=== PATIENT | male | born 1970 | race Caucasian/White ===

== ENCOUNTER 2022-07-01 07:16 | Day surgery (SDC) | payer MEDICAID, SELFPAY ==
[2022-07-01] VITALS (11 sets, daily range): BP systolic 96–130; BP diastolic 56–86; PULSE 60–80; RESP 12–16; TEMP 35.9–37; O2SAT 95–100; BMI 32.4
[2022-07-01] MEDS: LACTATED RINGERS 1000 ML 1,000 ML 100 ML IV (07:05)
[2022-07-01] MEDS: SODIUM CHLORIDE 0.9 % (FLUSH) 10 ML SYRINGE IVF (07:50)
[2022-07-01] MEDS: CEFAZOLIN 2 GM INJ IVP (09:00)
[2022-07-01] MEDS: ROPIVACAINE 0.5% 30 ML 150 MG INJECTION (09:37)
--- NOTE | 2022-07-01 09:42 | PM.ORPRC ---
Procedure Note Date of procedure: 07/01/22 Procedure: PREOPERATIVE DIAGNOSIS: 1. Right knee medial meniscus tear POSTOPERATIVE DIAGNOSIS: 1. Right knee medial meniscus tear 2. 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 Right knee arthroscopic partial medial menisectomy 2. Right knee arthroscopic chondroplasty patellofemoral compartment SURGEON: Chris Sanabria M.D. SUBSTATION DESIGNER: Reinaldo Fuller PA-C. Of note, an automotive service assistant was critical for this case to aid in patient positioning, knee manipulation, instrument exchange, and closure. ANESTHESIA: Spinal EBL: 2ml TOURNIQUET: 20 minutes at 300 torr COMPLICATIONS: None evident INDICATIONS: The patient is a pleasant 51-year-old male who has experienced right knee pain particularly with any twisting or turning. Physical exam was concerning for medial meniscus tear, this was confirmed on MRI. Additionally, attempted nonoperative management has been tried, and failed. Thus, surgery was recommended. FINDINGS: Grade 3-4 chondromalacia medial compartment broadly throughout the weight-bearing portion of both surfaces. Complex tearing posterior horn to midbody medial meniscus. No bucket-handle tearing evident. Posterior root was intact. ACL and PCL were intact and robust lateral compartment showed grade 2 chondromalacia but an intact lateral meniscus with only minimal fraying central portion. Patellofemoral compartment showed grade 4 chondromalacia particularly in the trochlear groove in his section measuring 15 x 20 mm M-L and A-P. DESCRIPTION OF PROCEDURE: After a thorough discussion of risks, benefits, and alternatives, the patient was brought to the operating room and placed upon the operating table. Induction of anesthesia was undertaken as previously noted. 2g iv Ancef was administered within 1 hr of incision preoperatively. Appropriate time-out was performed identifying proper patient, site, and procedure. The right lower extremity was prepped and draped in the appropriate sterile fashion using ChloraPrep. The limb was exsanguinated and tourniquet inflated. Anterolateral and anteromedial portals were established with an 11 blade, and a diagnostic arthroscopy was performed. This identified the findings as noted above. Following the diagnostic arthroscopy, a partial medial menisectomy was performed with the combination of basket forceps and a motorized shaver. Following this, the meniscus was re-probed and found to be stable. Approximately 33-40 % of the overall meniscus required resection. In addition, the torpedo shaver was utilized for chondroplasty of the patellofemoral compartment loose chondral flaps - this primarily was from the trochlear groove. At this stage, the shaver was reinserted into the suprapatellar pouch and all remaining meniscal debris was evacuated. Instruments were removed, excess fluid was drained, and closure performed with 4-0 Monocryl with Steri-Strips. Dressings were applied, the tourniquet deflated, and the patient was awoken from anesthesia and transferred to the PACU in stable condition. PLAN: 1. Weightbear as tolerated operative extremity. Crutch / walker ambulation assistance PRN. 2. Ice, acetominophen and/or ibuprofen, and Percocet for pain as needed. 3. Knee range of motion and quad sets/straight leg raise regularly 4. Follow up with PA visit in 1-2 weeks for a wound check and possibly to initiate physical therapy.
--- NOTE | 2022-07-01 09:52 | W.ANESCHARGE ---
Anesthesia Charges Start Date/Time Anesthesia Start Date: 07/01/22 Anesthesia Start Time: 08:49 Stop Date/Time Anesthesia Stop Date: 07/01/22 Anesthesia Stop Time: 09:49 Summary Emergency: No
--- NOTE | 2022-07-01 10:12 | SUR.PHASEI ---
Pts blood glucose 60 [employer] manager notified apple juice po given pt deniea any symptoms
--- NOTE | 2022-07-01 10:17 | W.ANESCHARGE ---
Anesthesia Charges Start Date/Time Anesthesia Start Date: 07/01/22 Anesthesia Start Time: 08:49 Stop Date/Time Anesthesia Stop Date: 07/01/22 Anesthesia Stop Time: 09:49 Summary Emergency: No
--- NOTE | 2022-07-09 09:40 | SUR.PREOP ---
late entry of charting completion in preoperative area done by this nurse to close case for billing. Conrado Fox not in today.
== END 2022-07-01 11:30 | disposition home or self-care (01) ==
PROVIDERS: PCP Family Medicine; Visit Provider Orthopaedic Surgery Sports Medicine
PROC: (CPT 29870; principal; 2022-07-01 08:30)
DX: M23.221 Derangement of posterior horn of medial meniscus due to old tear or injury, right knee (principal); M22.41 Chondromalacia patellae, right knee
CPT/HCPCS: 29881; 01400; J0690; J1885; J2250; J2370; J2400; J2405; J2704; J2795; J3010; J7120

== ENCOUNTER 2022-09-15 10:10 | Outpatient (CLI) | payer MEDICAID, SELFPAY ==
[2022-09-15 16:02] LABS: Chloride* 105 mmol/L (96-114); Potassium* 4.9 mmol/L (3.6-5.1); Sodium* 140 mmol/L (135-149)
[2022-09-15 16:05] LABS: Blood Urea Nitrogen* 23 mg/dL (7-30); Carbon Dioxide* 24 mmol/L (20-32); Creatinine* 0.7 mg/dL (0.5-1.5); Estimated Glomerular Filt Rate 111 ml/min; Glucose* 113 mg/dL (60-115)
[2022-09-15 16:06] LABS: Calcium* 9.6 mg/dL (8.4-10.6)
== END 2022-09-15 10:11 | disposition home or self-care (01) ==
PROVIDERS: PCP Family Medicine; Visit Provider Family Medicine
DX: E03.9 Hypothyroidism, unspecified (principal); E11.9 Type 2 diabetes mellitus without complications; R56.9 Unspecified convulsions
CPT/HCPCS: 80048; 80164; 80165; 84443

== ENCOUNTER 2022-12-01 12:20 | Outpatient (CLI) | payer MEDICAID, SELFPAY ==
[2022-12-01 14:24] LABS: Basophils Absolute Auto 0.02 K/uL (0.00-0.30); Basophils Percent Auto 0.2 % (0.0-3.0); Eosinophils Absolute Auto 0.37 K/uL (0.00-0.50); Eosinophils Percent Auto 4.4 % (0.0-7.0); Hematocrit 38.4 % (37.0-53.0); Hemoglobin* 12.9 gm/dL (13.5-17.5); Immature Granulocytes Abs Auto 0.03 K/uL (0.00-0.30); Immature Granulocytes Pct Auto 0.4 %; Lymphocytes Absolute Auto 2.73 K/uL (0.90-2.90); Lymphocytes Percent Auto 32.8 % (20-44); Mean Corpuscular HGB Conc 34 gm/dL (32-36); Mean Corpuscular Hemoglobin 32 pg (26-34); Mean Corpuscular Volume 95 fL (80-100); Neutrophils Absolute Auto 4.51 K/uL (1.7-7.0); Neutrophils Percent Auto 54.2 % (42.0-72.0); Platelet Count* 332 K/uL (140-440); Red Blood Count 4.03 m/uL (4.30-5.90); White Blood Count* 8.33 K/uL (4.50-11.00)
[2022-12-01 14:34] LABS: Slide Review Reflex No
[2022-12-01 14:36] LABS: Chloride* 102 mmol/L (96-114); Sodium* 140 mmol/L (135-149)
[2022-12-01 14:39] LABS: Carbon Dioxide* 27 mmol/L (20-32); Creatinine* 0.8 mg/dL (0.5-1.5); Estimated Glomerular Filt Rate 106 ml/min
[2022-12-01 14:40] LABS: Blood Urea Nitrogen* 16 mg/dL (7-30); Calcium* 9.9 mg/dL (8.4-10.6); Glucose* 147 mg/dL (60-115)
== END 2022-12-01 12:21 | disposition home or self-care (01) ==
PROVIDERS: PCP Family Medicine; Visit Provider Family Medicine
DX: Z01.818 Encounter for other preprocedural examination (principal); E11.9 Type 2 diabetes mellitus without complications; R56.9 Unspecified convulsions; E03.9 Hypothyroidism, unspecified; R60.9 Edema, unspecified
CPT/HCPCS: 80048; 80164; 80165; 84443; 85025

== ENCOUNTER 2022-12-10 08:58 | Outpatient (CLI) | payer MEDICAID, SELFPAY ==
[2022-12-10 17:57] LABS: SARS PCR* Negative SARS-CoV-2 (Negative)
== END 2022-12-10 08:59 | disposition home or self-care (01) ==
LOC: FBOREF 08:58
PROVIDERS: PCP Family Medicine; Visit Provider Family Medicine
DX: Z20.822 Contact with and (suspected) exposure to COVID-19 (principal)
CPT/HCPCS: 87635

== ENCOUNTER 2022-12-14 10:28 | Day surgery (SDC) | payer MEDICAID, SELFPAY ==
[2022-12-14] VITALS (23 sets, daily range): BP systolic 117–153; BP diastolic 75–106; PULSE 61–81; RESP 12–20; TEMP 35.2–37.1; O2SAT 96–100; BMI 29.0
--- NOTE | 2022-12-14 11:13 | CRLHL7_ITS ---
For Patients: As a result of the Cures Act, medical imaging exams and procedure reports are released immediately into your electronic medical record. You may view this report before your referring provider. If you have questions, please contact your health care provider. Indication: POST OP TKA Technique: 2 views right knee Findings/Impression: Hardware from a right total knee arthroplasty is in satisfactory position. Bone alignment is normal. No sign of acute fracture. Postop changes are within normal limits. Dictated by Tapan Sanchez MD @ 12/15/2022 12:20:04 PM (Electronically Signed)
[2022-12-14] MEDS: LACTATED RINGERS 1000 ML 1,000 ML 100 ML IV ×2 (11:30→13:54)
[2022-12-14] MEDS: SODIUM CHLORIDE 0.9 % (FLUSH) 10 ML SYRINGE IVF (11:30)
[2022-12-14] MEDS: CELECOXIB 200 MG CAPSULE PO (12:18)
[2022-12-14] MEDS: OXYCODONE (CR) 10 MG TAB.ER.12H PO (12:18)
[2022-12-14] MEDS: ACETAMINOPHEN 500 MG TABLET 1000 MG PO ×3 (12:18→23:48)
[2022-12-14] MEDS: MIDAZOLAM HCL 1 MG/ML inj IVP (12:47)
[2022-12-14] MEDS: fentaNYL 100 MCG/2 ML inj IVP (12:47)
--- NOTE | 2022-12-14 12:50 | SUR.PREOP ---
TIME?OUT:?1245 right knee PT/RN/MDA?VERIFICATION?OF?SURGICAL?SITE,?PROCEDURE,?AND?CONSENT OBTAINED?PRIOR?TO?INVASIVE?PROCEDURE.
[2022-12-14] MEDS: CEFAZOLIN 2 GM in 0.9 % SODIUM CHLORIDE Mini-bag 100 ML IVPB ×2 (13:30→19:47)
[2022-12-14] MEDS: TRANEXAMIC ACID 100 MG/ML INJ 1000 MG IV (13:35)
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
--- NOTE | 2022-12-14 14:19 | W.ANESCHARGE ---
Anesthesia Charges Start Date/Time Anesthesia Start Date: 12/14/22 Anesthesia Start Time: 13:19 Stop Date/Time Anesthesia Stop Date: 12/14/22 Anesthesia Stop Time: 15:28 Summary Emergency: No
--- NOTE | 2022-12-14 14:50 | P.ORPRC_ITS ---
Procedure Note Date of procedure: 12/14/22 Procedure: PREOPERATIVE DIAGNOSIS: 1. Right knee osteoarthritis, primary, severe POSTOPERATIVE DIAGNOSIS: 1. Right knee osteoarthritis, primary, severe PROCEDURE: 1. Right total knee arthroplasty SURGEON: Chris Sanabria MD. SPEECH COMMUNICATION INSTRUCTOR: Missael HODGSON - Of note, a skilled baking assistant was critical for this case to aid in patient positioning, tissue retraction, limb manipulation/positioning, and closure. ANESTHESIA: Spinal anesthetic IMPLANTS: DePuy J&J cemented patella, otherwise uncemented femur and tibia TKA - Attune PS femur size 9, size 8 tibia, 5 poly spacer, 38 mm patella TOURNIQUET: 90 min at 300 torr EBL: 50 ml COMPLICATIONS: None evident INDICATIONS: The patient is a pleasant 52-year-old male who has experienced severe right knee pain and difficulty bearing weight. Workup included x-rays which revealed severe osteoarthrosis in the knee. Given the deformity, the dysfunction, and the pain, as well as the failure of nonoperative management, recommendation was made for surgery. FINDINGS: Full-thickness chondral loss medial femoral condyle and trochlear groove as well as patella median ridge. Moderate effusion upon entering the joint. Degenerative meniscus pathology: Medial greater than lateral. DESCRIPTION OF PROCEDURE: Following a thorough discussion of risks, benefits, and alternatives consent was obtained and the right knee was marked. The patient was brought to the operating room and placed supine on the operating table. Induction of anesthesia was undertaken. 2 g IV Ancef and 1 g tranexamic acid was administered within 1 hr of incision preoperatively. Proper time-out was performed identifying proper patient, site, procedure. The operative extremity was prepped and draped in the appropriate sterile fashion using ChloraPrep after the patient was positioned supine with all bony prominences well padded. A longitudinal, anterior, midline skin incision was made starting approximately 3cm proximal to the superior pole of the patella and advanced distal to the tibial tubercle. A median parapatellar arthrotomy was created. A medial subperiosteal sleeve was created with knife, berrios elevator and curved osteotome. The retropatellar fatpad was resected and the synovium in the suprapatellar pouch excised to visualize the anterior femoral cortex. Femoral preparation was performed via an intramedullary guide. Step drill allowed access into the femoral canal. The distal cutting guide was placed with 5? of valgus and 11 mm cut on the distal femur was performed initially. After assessing gaps, he was found to still be tight in extension. Thus, 4 more mm (total of 15 mm) was cut from the distal femur due to a 15+ degree flexion contracture. Femur was sized using a posterior referencing guide in 3? of external rotation. This found have a best fit with the sizing noted above. The 4 in 1 cutting block was then placed, and the distal femur shaped accordingly. The box cut was then created and the trial implant inserted to confirm appropriate fit. We turned our attention to the proximal tibia. Extramedullary guide was utilized for cutting with the goal of being 90 degree cut from the mechanical axis of the tibia in the varus/valgus plane utilizing tibial crest as the primary alignment. Initially a 2 mm resection was performed from the medial tibial plateau but an additional 2 mm required resection to achieve appropriate gaps and balance in both flexion and extension. Ultimately, balancing was achieved in both flexion and extension in both varus and valgus. The knee was able to achieve full extension as well comfortably. The patella was initially measured and found have a thickness of 27 mm. It was resected back to approximately 17 mm. It was sized to be a best fit with as noted above. This was drilled, trial placed. All trials were placed and found to have an excellent stability and balance. At this stage, trial implants were removed. Cement was mixed for the patellar component after trialing. We then applied the Press-Fit tibia followed by the femur. The cement was at approximately 8.5 minutes upon application of the patella. This was clamped and allowed to cure. The real polyethylene was inserted after the real implants have been inserted. Of note, the patella was thoroughly irrigated and dried prior to cementation. A 3 min Betadine soak performed. Finally, a final irrigation round with normal saline was performed. Closure performed with 0 Vicryl and #0 Stratafix for the quad tendon/retinaculum. 2-0 Vicryl for the subcutaneous and 4-0 Stratafix for subcuticular closure. Dressings were applied and the patient was awoken from anesthesia after the tourniquet deflated and transferred the PACU in stable condition. A skilled baking assistant was critical for this case to aid in patient positioning, t issue retraction, bone exposure, limb manipulation/positioning, patient safety, and closure. PLAN: 1. Weight bear as tolerated operative extremity. 2. 23 hr perioperative antibiotics. 3. Ice. 4. PT/OT consults for ambulation assistance/mobility education. 5. Social work consult for discharge planning. 6. DVT prophylaxis with at SCDs, Franklyn Hose, and aspirin twice daily.
--- NOTE | 2022-12-14 15:27 | W.ANESCHARGE ---
Anesthesia Charges Start Date/Time Anesthesia Start Date: 12/14/22 Anesthesia Start Time: 13:19 Stop Date/Time Anesthesia Stop Date: 12/14/22 Anesthesia Stop Time: 15:28 Summary Emergency: No
--- NOTE | 2022-12-14 15:28 | P.NB_ITS ---
Nerve Block Nerve Block Time Seen by Provider: 12:49 Date Seen: 12/14/22 Type of block requested by surgeon for post-operative analgesia: geniculars Side: right Time out performed: Yes Verification of patient name: Yes Verification of date of : Yes Site marking: site marked Name of person performing procedure: Oscar Continuous monitoring Was continuous monitoring of O2 sat, B/P, director of cardiac cath lab, recorded every 15 minutes?: Yes Procedure Checklist: sterile prep, needles and gloves Medications given in 5ml increments after negative aspiration: Ropivicaine %: 0.5 mL: 9 Needle gauge: 25 Patient tolerated procedure well: Yes Block Charges Block Charge (with Pro Fee): Genicular Nerve Block Use of Ultrasound Machine for Block: No
--- NOTE | 2022-12-14 15:28 | P.NB_ITS ---
Nerve Block Nerve Block Time Seen by Provider: 12:49 Date Seen: 12/14/22 Type of block requested by surgeon for post-operative analgesia: adductor canal Side: left Time out performed: Yes Verification of patient name: Yes Verification of date of : Yes Site marking: site marked Name of person performing procedure: Oscar Continuous monitoring Was continuous monitoring of O2 sat, B/P, school lunch monitor, recorded every 15 minutes?: Yes Procedure Checklist: sterile prep, needles and gloves Ultrasound guided. Images saved: Yes Medications given in 5ml increments after negative aspiration: Ropivicaine %: 0.5 mL: 20 Needle gauge: 20 Decadron (mg): 10 Precedex (mcg): 25 Patient tolerated procedure well: Yes Additional comments: Needle noted adjacent to nerve Block Charges Block Charge (with Pro Fee): Femoral Nerve Use of Ultrasound Machine for Block: Yes- US Guidance/pain block
[2022-12-14] MEDS: LACTATED RINGERS 1000 ML 1,000 ML 75 ML IV (16:30)
[2022-12-14] MEDS: DIVALPROEX DELAYED RELEASE 250 MG TABLET 2000 MG PO (21:02)
[2022-12-14] MEDS: ASPIRIN 81 MG TABLET EC PO (21:02)
[2022-12-14] MEDS: OXYCODONE 5 MG TABLET PO ×2 (21:02→23:48)
[2022-12-14] MEDS: SENNOSIDES 1 TAB TABLET 2 TAB PO (21:09)
--- NOTE | 2022-12-14 23:05 | PC.NURSE ---
Shift [id number]- Patient rates pain up to 8/10 once sensation returns, though speaks calmly and moves without signs of pain. PRN pain medication provided with relief. He is up to chair and is voiding, with assist of 1, gait belt and walker. Cryocuff in place. He tolerates advanced diet. He is saline locked with good output. He has a blood glucose meter to left arm- this afternoon his meter stated blood glucose of 157; our meter was 227, checked for accuracy, then tested patient again at 216. Later, though, our meter and his were within points of each other. RN recommended to continue to check his meter against ours and to consider following up to prevent errors in BG checks.
[2022-12-15 03:00] VITALS: BP 115/66; PULSE 76; RESP 16; TEMP 36.3; O2SAT 97
[2022-12-15] MEDS: CEFAZOLIN 2 GM in 0.9 % SODIUM CHLORIDE Mini-bag 100 ML IVPB (03:27)
[2022-12-15] MEDS: OXYCODONE 5 MG TABLET PO ×3 (03:32→09:21)
--- NOTE | 2022-12-15 05:58 | PC.NURSE ---
[id number] Pt slept during night, pain controlled with PRN pain medications, Ice to R knee, dressing C/D/I, ambulating with walker and SBA, tolerating very well. denies SOB, chest pain, headache, N or V.
[2022-12-15] MEDS: ACETAMINOPHEN 500 MG TABLET 1000 MG PO (06:10)
[2022-12-15] MEDS: LEVOTHYROXINE 112 MCG TABLET PO (06:11)
[2022-12-15 07:04] LABS: Basophils Percent Auto 0.1 % (0.0-3.0); Hematocrit 33.7 % (37.0-53.0); Hemoglobin* 11.5 gm/dL (13.5-17.5); Immature Granulocytes Pct Auto 0.2 %; Lymphocytes Percent Auto 8.7 % (20-44); Mean Corpuscular HGB Conc 34 gm/dL (32-36); Mean Corpuscular Hemoglobin 32 pg (26-34); Mean Corpuscular Volume 94 fL (80-100); Monocytes Percent Auto 7.1 % (0.0-11.0); Neutrophils Percent Auto 83.9 % (42.0-72.0); Platelet Count* 312 K/uL (140-440); Red Blood Count 3.58 m/uL (4.30-5.90); White Blood Count* 14.46 K/uL (4.50-11.00)
[2022-12-15 07:10] LABS: Potassium* 4.3 mmol/L (3.6-5.1); Sodium* 137 mmol/L (135-149)
[2022-12-15 07:13] LABS: Creatinine* 0.5 mg/dL (0.5-1.5); Est. Creatinine Clearance* 209.77; Estimated Glomerular Filt Rate 122 ml/min
[2022-12-15 07:14] LABS: Blood Urea Nitrogen* 15 mg/dL (7-30)
[2022-12-15 07:19] LABS: Slide Review Reflex No
[2022-12-15 08:05] VITALS: BP 109/66; PULSE 81; RESP 18; TEMP 36.5; O2SAT 96
[2022-12-15] MEDS: ASPIRIN 81 MG TABLET EC PO (09:20)
[2022-12-15] MEDS: DIVALPROEX DELAYED RELEASE 250 MG TABLET 2000 MG PO (09:20)
--- NOTE | 2022-12-15 09:43 | PM.DS1 ---
DS: Providers Provider Date Seen: 12/15/22 Date of admission: Med/Surg Recovery 12/14/2022 Primary care physician: Tapan Mcintyre MD Consults: 12/14/22 16:15 Consult to Occupational Therapy [CONS] Routine Comment: Reason(s) for OT Consult:: ADLs Prior to Discharge Any Restrictions?:: See Comment Comment: See nursing activity order for any restrictions. Consult to Physical Therapy [CONS] Routine Comment: Ambulate in the loredo today. Reason(s) for PT Consult:: TKA TX Protocol POD#0 Any Restrictions?:: See Comment Comment: See nursing activity order for any restrictions. Consult to Physician [CONS] Routine Comment: Consulting Provider: Hospitalists Has provider been notified: No Consult to Death Surveys Coder [CONS] Routine Comment: Reason for Consult:: Discharge Planning Needs Attending Physician on discharge: Chris Sanabria MD Date of Discharge: 12/15/22 DS: Diagnosis Discharge Diagnosis (1) Status post total right knee replacement: Status: Acute Problem details: POD 1 12/14/2022, Dr. Sanabria, Press-Fit DS: Summary Hospital Course Hospital Course: The patient has a history of right knee osteoarthritis, primary, severe. After appropriate preoperative evaluation, the patient underwent right total knee arthroplasty. Postoperatively given anticoagulation for deep vein thrombosis prophylaxis. They progressed to PT/OT and were felt ready and prepared for discharge to home with appropriate pain medication and anticoagulation medications. Status at Discharge Functional status at discharge: uses cane/walker Overall status at discharge: patient is progressing back to baseline Time Spent with Patient Time attestation: Total time spent providing and/or coordinating discharge services: Exam Const: Vital Signs, click to edit/add: Vital Signs - 24 hr 12/14/22 10:50 12/14/22 12:45 12/14/22 12:55 Temperature 98.7 F Pulse Rate 81 77 68 Pulse Rate [Right Pulse Oximeter] Respiratory Rate 20 16 14 Blood Pressure 117/78 122/85 127/79 Blood Pressure [Le ft Arm] Pulse Oximetry 96 98 99 Oxygen Delivery Me thod Room Air Nasal Cannula Nasal Cannula Oxygen Flow Rate 3 3 12/14/22 12:50 12/14/22 15:25 12/14/22 15:30 Temperature 97 F L Pulse Rate 70 65 66 Pulse Rate [Right Pulse Oximeter] Respiratory Rate 14 14 14 Blood Pressure 119/76 120/80 120/82 Blood Pressure [Le ft Arm] Pulse Oximetry 96 98 98 Oxygen Delivery Me thod Nasal Cannula Room Air Room Air Oxygen Flow Rate 3 12/14/22 15:35 12/14/22 15:40 12/14/22 15:45 Temperature Pulse Rate 64 61 61 Pulse Rate [Right Pulse Oximeter] Respiratory Rate 14 14 14 Blood Pressure 125/88 123/86 132/89 Blood Pressure [Le ft Arm] Pulse Oximetry 98 99 98 Oxygen Delivery Me thod Room Air Room Air Room Air Oxygen Flow Rate 12/14/22 15:50 12/14/22 15:55 12/14/22 16:15 Temperature 97 F L 95.3 F L Pulse Rate 61 65 61 Pulse Rate [Right Pulse Oximeter] Respiratory Rate 12 12 16 Blood Pressure 135/89 132/85 Blood Pressure [Le ft Arm] 147/99 H Pulse Oximetry 98 98 Oxygen Delivery Me thod Room Air Room Air Room Air Oxygen Flow Rate 12/14/22 16:15 12/14/22 16:30 12/14/22 16:45 Temperature 95.3 F L Pulse Rate Pulse Rate [Right Pulse Oximeter] 61 75 70 Respiratory Rate 16 16 16 Blood Pressure Blood Pressure [Le ft Arm] 147/99 H 145/101 H 148/96 H Pulse Oximetry 99 99 99 Oxygen Delivery Me thod Room Air Room Air Room Air Oxygen Flow Rate 12/14/22 17:15 12/14/22 17:00 12/14/22 17:45 Temperature 96.3 F L Pulse Rate Pulse Rate [Right Pulse Oximeter] 64 67 74 Respiratory Rate 16 16 18 Blood Pressure Blood Pressure [Le ft Arm] 150/96 H 153/106 H 139/93 H Pulse Oximetry 99 100 98 Oxygen Delivery Me thod Room Air Room Air Room Air Oxygen Flow Rate 12/14/22 18:00 12/14/22 19:00 12/14/22 20:00 Temperature Pulse Rate Pulse Rate [Right Pulse Oximeter] 68 73 77 Respiratory Rate 18 18 18 Blood Pressure Blood Pressure [Le ft Arm] 139/93 H 136/85 126/80 Pulse Oximetry 97 99 97 Oxygen Delivery Me thod Room Air Room Air Room Air Oxygen Flow Rate 12/14/22 21:00 12/14/22 22:00 12/14/22 23:00 Temperature Pulse Rate Pulse Rate [Right Pulse Oximeter] 77 76 Respiratory Rate 16 16 Blood Pressure Blood Pressure [Le ft Arm] 137/75 150/91 H Pulse Oximetry 98 99 96 Oxygen Delivery Me thod Room Air Room Air Oxygen Flow Rate 12/14/22 23:00 12/15/22 03:00 Temperature 97.2 F L 97.3 F L Pulse Rate Pulse Rate [Right Pulse Oximeter] 80 76 Respiratory Rate 16 16 Blood Pressure Blood Pressure [Le ft Arm] 137/101 H 115/66 Pulse Oximetry 96 97 Oxygen Delivery Me thod Room Air Room Air Oxygen Flow Rate 0 0 DS: Data Data Completed and Pending Labs on day of discharge: Labs from last 24 hours 12/15/22 12/15/22 06:40 06:40 WBC 14.46 H RBC 3.58 L Hgb 11.5 L Hct 33.7 L MCV 94 MCH 32 MCHC 34 RDW Coeff of Thomas 13.0 Plt Count 312 Neut % (Auto) 83.9 H Lymph % (Auto) 8.7 L [place] % (Auto) 7.1 Eos % (Auto) 0.0 Baso % (Auto) 0.1 Neut # (Auto) 12.10 H Lymph # (Auto) 1.30 [place] # (Auto) 1.00 H Eos # (Auto) 0.00 Baso # (Auto) 0.00 Sodium 137 Potassium 4.3 BUN 15 Creatinine 0.5 Estimated Creat Clear 209.77 Estimated GFR 122 Discharge Plan Discharge Disposition: Home w/ Parent or Adult Discharging Surgeon: Chris Sanabria Follow-Up Appointment: 1 week PO with DAVID Prescriptions: New acetaminophen 500 mg capsule 500 - 1,000 mg PO Q6H MDD 4000mg PRNQty: 100 0RF sennosides-docusate sodium [Senna-S] 8.6-50 mg tablet 1 - 4 tab-cap PO BID PRN (Reason: constipation) Qty: 60 0RF Rx Instructions: Hold medication if experiencing loose stools. aspirin 81 mg tablet,delayed release (DR/EC) 81 mg PO BID Qty: 60 0RF Rx Instructions: Medication to help prevent blood clots postoperatively; take TWICE daily. celecoxib 100 mg capsule 100 mg PO BID Qty: 60 0RF oxycodone 5 mg tablet 2.5 - 5 mg PO Q4-6H MDD 6 PRN (Reason: pain) Qty: 42 0RF Rx Instructions: Take as needed for postop pain: 2.5mg mild pain, 5mg moderate-severe pain; wean as tolerated. Continued divalproex 500 mg tablet,delayed release (DR/EC) 2,000 mg PO BID Label Comments: FOUR TABLETS BY MOUTH TWICE A DAY epinephrine 0.3 mg/0.3 mL auto-injector 0.3 mg IM ONCE PRN furosemide 40 mg tablet 40 mg PO DAILY sennosides-docusate sodium [Stimulant Laxative Plus] 8.6-50 mg tablet 2 tab-cap PO DAILY levothyroxine 112 mcg tablet 112 mcg PO DAILY Victoza 2-Sumeet 0.6 mg/0.1 mL (18 mg/3 mL) pen injector 1.2 mg subcut DAILY Held diclofenac sodium 75 mg tablet,delayed release (DR/EC) 75 mg PO BID Qty: 180 1RF Hold Instructions: Resume on 01/12/23. do not take while taking Celebrex. These are both NSAIDS. Activity Level: Activity as Tolerated, Weight Bearing as Tolerated, Use Cane and Use Walker Activity Detail: Wound: ?Do not remove original dressing; we will remove this at first postop visit in 1 week. Only remove dressing if integrity is in question. ?No immersing wound in water; showering okay; light scrub with your hand and body soap, rinse, dab dry ?Sutures are under the skin, will dissolve; allow surgical glue to come off naturally; do not scrub the wound or apply ointments/lotions ?Call our office with any redness that streaks, excessive drainage from the wound, or wound gapping. Ice/Elevate: ?Ice as needed for swelling and discomfort (cryocuff or ice pack); elevate frequently above the heart ALINA socks: ?Wear for 1 month, remove for 1 hour 3 times per day ?These are frustrating to take on/off, but are important for blood clot prevention for 1 month after surgery Blood Clot Prevention (DVT): ?Medication: 81 mg aspirin by mouth twice daily (1 month) Driving: ?Do not drive while taking narcotic pain medication ?Anticipate 4-6 weeks no driving if operative leg is driving leg Dental: ?No elective dental work for 6 months post-op. If there is an urgent/emergent dental need, contact our office for an antibiotic prescription. Smoking/Alcohol: ?Do not smoke; do no drink alcohol especially when taking postoperative oral narcotic medication Seek Care from you Primary Care Provider if you experience the following issues in the postoperative phase and beyond: ?Bacterial infections such as: pneumonia, bacterial skin infection (cellulitis), UTI, high fever, chills unrelated to the operative body part - call your primary care physician urgently for treatment in hopes to protect your health and the metal implant. Referrals: ?PT, OT per patient preference - evaluate treat total knee arthroplasty protocol (gait training, ROM, ADLs) Follow up: ?Ortho surgeon follow-up in 6 weeks; repeat radiographs three views operative knee ?PA-Millicent visit in 1 week *If there are any acute concerns regarding your surgery, please call our orthopedic clinic ([phone]) Discharge Diet: Diabetic Patient Instructions: Acetaminophen (By mouth), Aspirin (By mouth), Oxycodone, Rapid Release (By mouth), Celecoxib (By mouth), Senna (By mouth), Knee Replacement (DC) Forms: Work/School Release Follow-up: Tapan Mcintyre MD [Primary Care Provider] - Reinaldo Fuller PA-C [Physician Laboratory Technology Teacher] - 12/24/22 9:10 am (At the [facility]. Call if you have any questions.) Discharge Orders: Discharge Order (Routine); Ordered 12/15/22 Ordered By: Reinaldo Fuller Consulting provider completed their portion of the discharge: Yes
[2022-12-15 10:12] VITALS: PULSE 81; RESP 20
--- NOTE | 2022-12-15 15:13 | PC.SOCIAL ---
Met with pt in pt's room. Discussed discharge plans with pt. Pt states that he is prepared to go home and has a lot of family members that have offered to assist in his recovery. Pt has access to everything on one floor. Informed pt that if he is in need of anything he can reach out to social work as needed.
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
== END 2022-12-15 11:39 | disposition home or self-care (01) ==
LOC: OR 10:30 → MEDSURG 10:33
PROVIDERS: PCP Family Medicine; Visit Provider Orthopaedic Surgery Sports Medicine
PROC: (CPT 27447; principal; 2022-12-14 13:30)
DX: M17.11 Unilateral primary osteoarthritis, right knee (principal); M25.561 Pain in right knee; E11.9 Type 2 diabetes mellitus without complications; G40.509 Epileptic seizures related to external causes, not intractable, without status epilepticus; G90.4 Autonomic dysreflexia; S06.9X9A Unspecified intracranial injury with loss of consciousness of unspecified duration, initial encounter; E78.5 Hyperlipidemia, unspecified; E03.9 Hypothyroidism, unspecified; Z87.820 Personal history of traumatic brain injury
CPT/HCPCS: 27447; 01402; 36415; 64447; 64454; 73560; 76942; 82565; 82962; 84132; 84295; 84520; 85025; 97116; 97161; 97165; 97535; A9270; C1776; J0690; J1100; J2250; J2704; J2795; J3010; J7120

== ENCOUNTER 2023-01-19 12:06 | Outpatient (CLI) | payer MEDICAID, SELFPAY ==
[2023-01-19 14:03] LABS: Magnesium* 2.1 mg/dL (1.5-2.6)
[2023-01-19 14:04] LABS: Basophils Absolute Auto 0.04 K/uL (0.00-0.30); Basophils Percent Auto 0.5 % (0.0-3.0); Eosinophils Absolute Auto 0.28 K/uL (0.00-0.50); Eosinophils Percent Auto 3.3 % (0.0-7.0); Hematocrit 36.6 % (37.0-53.0); Hemoglobin* 12.2 gm/dL (13.5-17.5); Lymphocytes Absolute Auto 2.36 K/uL (0.90-2.90); Lymphocytes Percent Auto 27.7 % (20-44); Mean Corpuscular HGB Conc 33 gm/dL (32-36); Mean Corpuscular Hemoglobin 31 pg (26-34); Mean Corpuscular Volume 94 fL (80-100); Monocytes Percent Auto 9.3 % (0.0-11.0); Neutrophils Absolute Auto 5.06 K/uL (1.7-7.0); Neutrophils Percent Auto 59.2 % (42.0-72.0); Platelet Count* 274 K/uL (140-440); RDW Coefficient of Variation % 12.8 % (11.5-15.5); Red Blood Count 3.89 m/uL (4.30-5.90); White Blood Count* 8.53 K/uL (4.50-11.00)
[2023-01-19 14:15] LABS: Slide Review Reflex No
[2023-01-19 14:53] LABS: Vitamin B12* 508 pg/mL (243-894)
== END 2023-01-19 12:07 | disposition home or self-care (01) ==
PROVIDERS: PCP Family Medicine; Visit Provider Family Medicine
DX: G40.509 Epileptic seizures related to external causes, not intractable, without status epilepticus (principal); R11.2 Nausea with vomiting, unspecified; E03.9 Hypothyroidism, unspecified; E11.9 Type 2 diabetes mellitus without complications; E55.9 Vitamin D deficiency, unspecified
CPT/HCPCS: 80164; 80165; 82607; 83735; 84443; 85025

== ENCOUNTER 2023-12-21 11:22 | Outpatient (CLI) | payer MEDICAID, SELFPAY ==
--- OUTSIDE RECORDS SUMMARY | 2023-12-21 11:29 | XMS_ITS | Clinical Summary ---
Author Name Unknown Organization [facility] Address [place], [place] [address] Care Team Providers Care Business Control Manager Name Role Phone Tapan Mcintyre MD Primary Care Provider + Allergies Active Allergy Reactions Criticality Noted Date Comments Hymenoptera Allergenic Extract 07/09 Bee Venom Protein (Honey Bee) Edema,Dyspnea High 03/2019 Medications Medication Sig Dispensed Refills Start Date End Date Status EPINEPHrine (EpiPen) 0.3 mg/0.3 mL auto-injectorIndic ations:Allergy to bee sting Inject 0.3 mg (1 pen) intramuscular one time if needed for Allergic Reaction. 1 Each 06/24/2022 Active aspirin (ECOTRIN) 81 mg enteric coated tablet Take 81 mg by mouth once daily with a meal. 0 12/15/2022 Active levothyroxine (SYNTHROID) 112 mcg tablet Take 112 mcg by mouth once daily. 0 03/08/2023 Active Senna Plus 8.6-50 mg tablet Take 2 Tablets by mouth once daily. 0 Active LIRAGLUTIDE SUBQ Inject 1.2 mg subcutaneous once daily. 0 Active mirtazapine (REMERON) 15 mg tablet Take 15 mg by mouth at bedtime. 0 Active QUEtiapine (SEROQUEL) 50 mg tablet Take 50 mg by mouth two times daily. TAKE ONE TABLET BY MOUTH AT BEDTIME FOR 7 DAYS THEN TAKE ONE TABLET BY MOUTH TWICE A DAY 0 09/20/2023 Active lacosamide (VIMPAT) 100 mg tabletIndications: Seizure (HC) Take 1 Tablet (100 mg) by mouth two times daily. 60 Tablet 1 11/01/2023 Active clonazePAM (KLONOPIN) 0.5 mg tabletIndications: Seizure (HC) Take 1 Tablet (0.5 mg) by mouth at bedtime. 4 Tablet 0 11/01/2023 Active Active Problems Problem Noted Date Diagnosed Date Spinal stenosis, lumbar megan on, with neurogenic claudication 05/27/2023 Seizure 07/24/2021 Spinal stenosis of cervical region 06/17/2021 CHI (closed head injury) 11/13/2017 Closed nondisplaced fracture of scaphoid of righ t wrist 11/12/2017 Vitamin D deficiency 07/13/2011 Pure hypercholesterolemia 07/09/2011 Depression with anxiety 07/09/2011 Toxic effect of venom(989.5) 11/19/2006 Encounters Date Type Department Care Team Description 11/11/2023 1:29 PM BUNDLE BREAKER - 11/11/2023 11:59 PM BUNDLE BREAKER Hospital Encounter [address] [address] Howard Arvizu MD Low back pain, unspecified back pain laterality, unspecified chronicity, unspecified whether sciatica present; Other specified aftercare following surgery; Lumbar pain 11/11/2023 Travel 10/26/2023 9:38 AM BUNDLE BREAKER - 11/01/2023 11:44 AM BUNDLE BREAKER Hospital Encounter [facility] [address] [place] [address] Vu Guerrero MBBS Seizure (HC) (Primary Dx) Discharge Disposition: Home Self Care 10/26/2023 Travel from Last 3 Months Immunizations Name Administration Dates Next Due Influenza, IIV3 (Age 6-35 mos) 08/10/2011 Influenza, IIV3 (Age >=3 years) 08/10/2011 Polio Virus, Unspecified 04/08/1979 Td (Age >=7 Years) 04/08/1979 Tdap 08/10/2011 08/10/2021 Family History Medical History Relation Name Comments Good Health Brother 2 Cancer Father Some sort of tu mor under his eye Good Health Father Cancer Maternal Grandfather Cancer Maternal Grandmother Cancer-breast Mother Heart Disease Paternal Grandfather Good Health Paternal Grandmother Good Health Sister 2 Good Health Son 3 Good Health Son 4 Relation Name Status Comments Brother 1 Alive Brother 2 Father Alive Maternal Grandfather Maternal Grandmother Mother Alive Paternal Grandfather Paternal Grandmother Sister 1 Alive Sister 2 Son 1 Alive Son 2 Alive Son 3 Son 4 Social History Tobacco Use Types Packs/Day Years Used Date Smoking Tobacco: Every Day Cigarettes Smokeless Tobacco: Never Tobacco Cessation:Ready to Q uit: No; Counseling Given: Yes Comments:currently using nicorette to aid in smoking cessation Alcohol Use Standard Drinks/Week Comments Yes 0 (1 standard drink = 0.6 oz pure alcohol) every couple months, socially (2 drinks at most) Social Connections Answer Date Recorded Frequency of Communication with Friends and Fami ly Not on file 10/26/2023 Sex and Gender Information Value Date Recorded Sex Assigned at Not on file Gender Identity Not on file Sexual Orientation Not on file Obstetrics History Last Filed Vital Signs Vital Sign Reading Time Taken Comments Blood Pressure 140/92 11/01/2023 8:51 AM BUNDLE BREAKER Pulse 83 11/01/2023 8:51 AM BUNDLE BREAKER Temperature 36.6 ??C (97.8 ??F) 11/01/2023 8:51 AM CS T Respiratory Rate 16 11/01/2023 8:51 AM BUNDLE BREAKER Oxygen Saturation 94% 11/01/2023 8:51 AM BUNDLE BREAKER Inhaled Oxygen Concentration - - Weight 106.5 kg (234 lb 14.4 oz) 05/27/2023 6:44 AM CDT Height 195.6 cm (6' 5) 05/27/2023 6:44 AM CDT Body Mass Index 27.86 05/27/2023 6:44 AM CDT Plan of Treatment Upcoming Encounters Date Type Department Care Team (Latest Contact Info) Description 12/30/2023 12:45 PM BUNDLE BREAKER Hospital Encounter [address] [address] Howard Arvizu MD [address] [place] [id number] 12/30/2023 12:45 PM BUNDLE BREAKER - 12/30/2023 4:09 PM BUNDLE BREAKER Surgery [address] [address] Howard Arvizu MD [address] [place] [id number] DECOMPRESSION LAMINECTOMY L1 L4 BILATERAL POSS DC W DRAIN Scheduled Procedures Name Priority Associated Diagnoses Date/Ti me LAMINECTOMY LUMBAR LEVEL III STENOSIS, LUMBAR W/NEUROGENIC CLAUDICATION EPIDURAL LIPOMATOSIS 12/30/2023 12:45 PM BUNDLE BREAKER Health Maintenance Due Date Last Done Comments COVID-19 vaccine series (#1) 03/22/1970 Pneumococcal series for age 6-64 (1 of 2 - PCV) 1975 Depression screening for age 12+ 1981 HIV for age 15-65 1984 Hepatitis C screening for age 18-79 1987 Colonoscopy through age 75 2014 Lipids for age 45-75 02/10/2017 02/11/2012, 11/04/2011, 07/09/2011 Zoster (shingles) series for age 50+ (1 of 2) 2019 BMI (ht and wt on same day) for age 18+ 10/03/2020 10/03/2019 Tetanus booster 08/10/2021 08/10/2011, 04/08/1979 Influenza for age 50-64 07/30/2023 08/10/2011 Tdap Completed 08/10/2011 Procedures Procedure Name Priority Date/Time Associated Diagnosis Comments XR SPINE LUMBAR MINIMUM 4 VIEWS Routine 11/11/2023 2:13 PM BUNDLE BREAKER Low back pain, unspecified back pain laterality, unspecified chronicity, unspecified whether sciatica present MR SPINE LUMBAR WO Routine 11/11/2023 1: 59 PM BUNDLE BREAKER Low back pain, unspecified back pain laterality, unspecified chronicity, unspecified whether sciatica present Other specified aftercare following surgery Lumbar pain GLUCOSE METER Timed 11/01/2023 6:15 AM BUNDLE BREAKER SCAN-CARDIAC STRIP 11/01/2023 2: 35 AM BUNDLE BREAKER GLUCOSE METER Timed 10/31/2023 10:34 PM BUNDLE BREAKER GLUCOSE METER Timed 10/31/2023 4:58 PM BUNDLE BREAKER GLUCOSE METER Timed 10/31/2023 6:27 AM BUNDLE BREAKER SCAN-CARDIAC STRIP 10/31/2023 1: 28 AM BUNDLE BREAKER GLUCOSE METER Timed 10/30/2023 9:18 PM BUNDLE BREAKER GLUCOSE METER Timed 10/30/2023 4:56 PM BUNDLE BREAKER GLUCOSE METER Timed 10/30/2023 12:17 PM BUNDLE BREAKER GLUCOSE METER Timed 10/30/2023 8:08 AM BUNDLE BREAKER GLUCOSE METER Timed 10/30/2023 6:56 AM BUNDLE BREAKER SCAN-CARDIAC STRIP 10/30/2023 1: 21 AM BUNDLE BREAKER GLUCOSE METER Timed 10/29/2023 5:21 PM BUNDLE BREAKER GLUCOSE METER Timed 10/29/2023 8:24 AM BUNDLE BREAKER HEMOGLOBIN A1C SCREENING Early AM 10/29/2023 7:30 AM BUNDLE BREAKER SCAN-CARDIAC STRIP 10/29/2023 2: 09 AM BUNDLE BREAKER SCAN-CARDIAC STRIP 10/29/2023 2: 09 AM BUNDLE BREAKER SCAN-CARDIAC STRIP 10/29/2023 2: 09 AM BUNDLE BREAKER GLUCOSE METER Timed 10/28/2023 5:05 PM BUNDLE BREAKER GLUCOSE METER Timed 10/28/2023 9:12 AM BUNDLE BREAKER T4,FREE WILTON 10/28/2023 7:03 AM BUNDLE BREAKER SCAN-CARDIAC STRIP 10/28/2023 12 :53 AM BUNDLE BREAKER GLUCOSE METER Timed 10/27/2023 5:27 PM BUNDLE BREAKER GLUCOSE METER Timed 10/27/2023 7:44 AM BUNDLE BREAKER SCAN-CARDIAC STRIP 10/27/2023 1: 52 AM BUNDLE BREAKER EKG 12 LEAD Routine 10/26/2023 5:31 PM BUNDLE BREAKER VALPROIC ACID FREE Timed 10/26/2023 4: 48 PM BUNDLE BREAKER CBC WITH AUTO DIFFERENTIAL Today 10/26/2023 4:48 PM BUNDLE BREAKER TSH Timed 10/26/2023 4:48 PM BUNDLE BREAKER ANTINUCLEAR ANTIBODY BY IFA Timed 10/26/2023 4:48 PM BUNDLE BREAKER VALPROIC ACID,T AND F Timed 10/26/2023 4:48 PM BUNDLE BREAKER LACOSAMIDE (VIMPAT) Timed 10/26/2023 4 :48 PM BUNDLE BREAKER AMMONIA Today 10/26/2023 4:48 PM BUNDLE BREAKER EPILEPSY AUTOIMMUNE PARANEOPLASTIC EVAL BLOOD Today 10/26/2023 4:48 PM BUNDLE BREAKER COMP METABOLIC PANEL Today 10/26/2023 4:48 PM BUNDLE BREAKER CBC WITH AUTO DIFFERENTIAL Today 10/26/2023 4:48 PM BUNDLE BREAKER GLUCOSE METER Timed 10/26/2023 4:21 PM BUNDLE BREAKER CONTINUOUS VIDEO EEG MONITORING Routine 10/26/2023 2:54 PM BUNDLE BREAKER SCAN-CARDIAC STRIP 10/26/2023 11 :04 AM BUNDLE BREAKER from Last 3 Months Results * XR SPINE LUMBAR MINIMUM 4 VIEWS (11/11/2023 2:13 PM BUNDLE BREAKER) Anatomical Region Laterality Modality Spine, LUMBAR SPINE Digital Radi ography 11/12/2023 6:55 AM BUNDLE BREAKER Impressions 11/12/2023 6:55 AM BUNDLE BREAKER Severe chronic multilevel degenerative lumbar disc disease. Dictated by Eric Borges MD @ 11/12/2023 6:55:28 AM (Electronically Signed) Narrative 11/12/2023 6:55 AM BUNDLE BREAKER For Patients: ??As a result of the Cures Act, medical imaging exams and procedure reports are released immediately into your electronic medical record. ??You may view this report before your referring provider. ??If you have questions, please contact your health care provider. INDICATION: Low back pain TECHNIQUE: Lumbar spine 3 view. COMPARISON: 04/04/2010 FINDINGS: Bones: Loss of the normal lumbar lordosis typically due to muscle spasm. No fractures or significant bone lesions. No spondylolysis or spondylolisthesis. Joints: Severe degenerative disc narrowing with endplate spurring at all levels.. Soft tissues: Unremarkable. Procedure Note Carlos Borges MD - 11/12/2023 For Patients: As a result of the Cures Act, medical imagingexams and procedure reports are released immediately into your electronicmedical record. You may view this report before your referring provider.If you have questions, please contact your health care provider. INDICATION: Low back pain TECHNIQUE: Lumbar spine 3 view. COMPARISON: 04/04/2010 FINDINGS: Bones: Loss of the normal lumbar lordosis typically due to muscle spasm.No fractures or significant bone lesions. No spondylolysis orspondylolisthesis. Joints: Severe degenerative disc narrowing with endplate spurring at alllevels.. Soft tissues: Unremarkable. IMPRESSION: Severe chronic multilevel degenerative lumbar disc disease. Dictated by Eric Borges MD @ 11/12/2023 6:55:28 AM (Electronically Signed) Howard Arvizu MD GENERAL IMAGING * MR SPINE LUMBAR WO (11/11/2023 1:59 PM BUNDLE BREAKER) Anatomical Region Laterality Modality Spine, LUMBAR SPINE Magnetic Res onance 11/12/2023 8:46 AM BUNDLE BREAKER Impressions 11/12/2023 8:46 AM BUNDLE BREAKER 1. At L1-2, moderate spinal canal narrowing. Moderate discogenic vertebral body edema. 2. At L2-3, moderately severe spinal canal narrowing. 3. At L3-4, severe spinal canal narrowing. 4. At L4-5, postsurgical changes of laminectomy. Moderately severe left neural foraminal narrowing. 5. At L5-S1, epidural lipomatosis effaces the thecal sac. Moderate right neural foraminal narrowing. Dictated by Valerio Monroy MD @ 11/12/2023 8:46:51 AM (Electronically Signed) Narrative 11/12/2023 8:46 AM BUNDLE BREAKER For Patients: ??As a result of the Cures Act, medical imaging exams and procedure reports are released immediately into your electronic medical record. ??You may view this report before your referring provider. ??If you have questions, please contact your health care provider. INDICATION: Low back pain. TECHNIQUE: Multiplanar multisequence noncontrast MR images acquired through the lumbar spine. COMPARISON: None. FINDINGS: Mild rightward lumbar curvature. Lumbar lordosis is preserved. Mild chronic L1 vertebral body anterior wedging. No acute fracture. No T1 hypointense lesions. Normal conus terminates at L1-2. T12-L1: Moderate disc degeneration and disc height loss. Shallow circumferential disc bulge. No spinal canal or neural foraminal narrowing. L1-2: Trace retrolisthesis. Advanced disc degeneration and left eccentric disc height loss. Pttq-wg-ytqvfeqb vertebral body edema. Posterior disc bulging and endplate spondylitic ridging. Mild facet arthropathy. Moderate spinal canal narrowing. Cizr-th-mtpmhnrw left without right neural foraminal narrowing. L2-3: Mild retrolisthesis. Advanced disc degeneration and left eccentric disc height loss. Posterior disc bulge. Mild facet arthropathy. Epidural fat prominence. Moderately severe thecal sac narrowing. Mild left without right neural foraminal narrowing. L3-4: Mild retrolisthesis. Moderate disc degeneration and disc height loss. Circumferential disc bulge. Mild right facet arthropathy. Thickening ligamentum flavum. Severe thecal sac narrowing. Ubhv-qu-omuyqxwp left and mild right neural foraminal narrowing. L4-5: Postsurgical changes of laminectomy. Trace retrolisthesis. Advanced disc degeneration and disc height loss. Posterior disc bulging and endplate spondylitic ridging. Btjs-yz-ponersna facet arthropathy. Mild spinal canal narrowing. Moderately severe left and xbqa-oh-voaovnba right neural foraminal narrowing. L5-S1: Mild retrolisthesis. Advanced disc degeneration and disc height loss. Posterior disc bulging and endplate spondylitic ridging. Ghoc-qb-krxciane facet arthropathy. Epidural lipomatosis effaces the thecal sac. Moderate right and mild left neural foraminal narrowing. Sacroiliac joint degenerative changes. Procedure Note Valerio Monroy MD - 11/12/2023 For Patients: As a result of the 21st Century Cures Act, medical imagingexams and procedure reports are released immediately into your electronicmedical record. You may view this report before your referring provider.If you have questions, please contact your health care provider. INDICATION: Low back pain. TECHNIQUE: Multiplanar multisequence noncontrast MR images acquired through thelumbar spine. COMPARISON: None. FINDINGS: Mild rightward lumbar curvature. Lumbar lordosis is preserved. Mildchronic L1 vertebral body anterior wedging. No acute fracture. No P0jfqwsqfrzgs lesions. Normal conus terminates at L1-2. T12-L1: Moderate disc degeneration and disc height loss. Shallowcircumferential disc bulge. No spinal canal or neural foraminalnarrowing. L1-2: Trace retrolisthesis. Advanced disc degeneration and left eccentricdisc height loss. Atge-ok-npuvjyah vertebral body edema. Posterior discbulging and endplate spondylitic ridging. Mild facet arthropathy. Moderatespinal canal narrowing. Milq-ve-relqvdlu left without right neuralforaminal narrowing. L2-3: Mild retrolisthesis. Advanced disc degeneration and left eccentricdisc height loss. Posterior disc bulge. Mild facet arthropathy. Epiduralfat prominence. Moderately severe thecal sac narrowing. Mild left withoutright neural foraminal narrowing. L3-4: Mild retrolisthesis. Moderate disc degeneration and disc heightloss. Circumferential disc bulge. Mild right facet arthropathy. Thickeningligamentum flavum. Severe thecal sac narrowing. Iwcq-zb-fvavednr left andmild right neural foraminal narrowing. L4-5: Postsurgical changes of laminectomy. Trace retrolisthesis. Advanceddisc degeneration and disc height loss. Posterior disc bulging andendplate spondylitic ridging. Czip-fc-kglozsun facet arthropathy. Mildspinal canal narrowing. Moderately severe left and ppjx-wn-jcdqahas rightneural foraminal narrowing. L5-S1: Mild retrolisthesis. Advanced disc degeneration and disc heightloss. Posterior disc bulging and endplate spondylitic ridging.Iwcg-ef-dyrpxrcr facet arthropathy. Epidural lipomatosis effaces thethecal sac. Moderate right and mild left neural foraminal narrowing. Sacroiliac joint degenerative changes. IMPRESSION: 1. At L1-2, moderate spinal canal narrowing. Moderate discogenic vertebralbody edema. 2. At L2-3, moderately severe spinal canal narrowing. 3. At L3-4, severe spinal canal narrowing. 4. At L4-5, postsurgical changes of laminectomy. Moderately severe leftneural foraminal narrowing. 5. At L5-S1, epidural lipomatosis effaces the thecal sac. Moderate rightneural foraminal narrowing. Dictated by Valerio Monroy MD @ 11/12/2023 8:46:51 AM (Electronically Signed) Howard Arvizu MD MR * (ABNORMAL) GLUCOSE METER (11/01/2023 6:15 AM BUNDLE BREAKER) Only the most recent of16 resultswithin the time period is included. GLUCOSE METER 144(H) 65 - 100 mg/dL 11/01/2023 6:16 AM BUNDLE BREAKER [facility] Blood BLOOD SPECIMEN / Unknown 11/01/2023 6:15 AM BUNDLE BREAKER 11/01/2023 6:15 AM BUNDLE BREAKER Vu VILLASENOR CHEMISTRY [facility] [address] [place], [place] [id number], * SCAN-CARDIAC STRIP (11/01/2023 2:35 AM BUNDLE BREAKER) Scanner OTHER * SCAN-CARDIAC STRIP (10/31/2023 1:28 AM BUNDLE BREAKER) Scanner OTHER * SCAN-CARDIAC STRIP (10/30/2023 1:21 AM BUNDLE BREAKER) Scanner OTHER * (ABNORMAL) HEMOGLOBIN A1C SCREENING (10/29/2023 7:30 AM BUNDLE BREAKER) HEMOGLOBIN A1C SCREENING 8.0(H) <=6.4 % 10/29/2023 8:24 AM BUNDLE BREAKER [facility] Blood BLOOD SPECIMEN / Unknown Venipuncture / Unknown 10/29/2023 7:30 AM BUNDLE BREAKER 10/29/2023 8:02 AM BUNDLE BREAKER Narrative [facility] - 10/29/2023 8:24 AM BUNDLE BREAKER ? (<5.7%) ?Normal ? (5.7% to 6.4%) ? Indicates prediabetes ? (>=6.5%) ? Confirms diabetes Falsely low levels may be seen with: Recent Transfusion, Recent Significant Blood Loss, Hemolytic Diseases, or Falsely elevated levels may be seen with: Untreated Anemias, Splenectomy Vu VILLASENOR CHEMISTRY Performing Organization Address [facility] de Phone Number [facility] [address] [place] [address], * SCAN-CARDIAC STRIP (10/29/2023 2:09 AM BUNDLE BREAKER) Scanner OTHER * SCAN-CARDIAC STRIP (10/29/2023 2:09 AM BUNDLE BREAKER) Scanner OTHER * SCAN-CARDIAC STRIP (10/29/2023 2:09 AM BUNDLE BREAKER) Scanner OTHER * T4,FREE (10/28/2023 7:03 AM BUNDLE BREAKER) T4,FREE 1.37 0.93 - 1.70 ng/dL 10/28/2023 8:57 AM BUNDLE BREAKER [facility] Blood BLOOD SPECIMEN / Unknown Butterfly / Unknown 10/28/2023 7:03 AM BUNDLE BREAKER 10/28/2023 8:13 AM BUNDLE BREAKER Nita Stewart NP CHEMISTRY Performing Organization Address [facility] Co de Phone Number [facility] [address] [place] [address], * SCAN-CARDIAC STRIP (10/28/2023 12:53 AM BUNDLE BREAKER) Scanner OTHER * SCAN-CARDIAC STRIP (10/27/2023 1:52 AM BUNDLE BREAKER) Scanner OTHER * EKG 12 LEAD (10/26/2023 5:31 PM BUNDLE BREAKER) Interpretation Normal sinus rhythm ST & T wave abnormality, consider anterior ischemia Abnormal ECG No previous ECGs available BEYOND NOW Ventricular Rate 76 BPM BEYOND NOW Atrial Rate 76 BPM BEYOND NOW P-R Interval 184 ms BEYOND NOW QRS Duration 96 ms BEYOND NOW QT 368 ms BEYOND NOW QTc 414 ms BEYOND NOW P [place] 15 degrees BEYOND NOW R [place] 45 degrees BEYOND NOW T [place] 51 degrees BEYOND NOW 10/26/2023 5:31 PM BUNDLE BREAKER 10/27/2023 6:59 PM BUNDLE BREAKER Nita Stewart NP EKG ORD BEYOND NOW [place], [place] * EPILEPSY AUTOIMMUNE PARANEOPLASTIC EVAL BLOOD (10/26/2023 4:48 PM BUNDLE BREAKER) Pathologist [facility] EPILEPSY, INTERPRETATION, S SEE COMMENTS 11/04/2023 9:07 AM [facility] Comment: No informative autoantibodies were detected in this evaluation. However, a negative result does not exclude autoimmune epilepsy, idiopathic or paraneoplastic. Sensitivity and specificity of antibody testing are enhanced by testing both serum and CSF. IFA NOTES (EPS2) None. 11/04/20 9:07 AM BUNDLE BREAKER [facility] AMPA-R Ab CBA, S Negative Negative 11/04/20 9:07 AM BUNDLE BREAKER [facility] Comment: This test was developed and its performance characteristics determined by [facility] in a manner consistent with CLIA requirements. This test has not been cleared or approved by the U.S. Food and Drug Administration. AMPHIPHYSIN AB, S Negative Negative 023 9:07 AM BUNDLE BREAKER [facility] Comment: This test was developed and its performance characteristics determined by [facility] in a manner consistent with CLIA requirements. This test has not been cleared or approved by the U.S. Food and Drug Administration. AGNA-1 Negative Negative 11/04/2023 9:07 AM BUNDLE BREAKER [facility] Comment: This test was developed and its performance characteristics determined by [facility] in a manner consistent with CLIA requirements. This test has not been cleared or approved by the U.S. Food and Drug Administration. HITESH-1, S Negative Negative 11/04/2023 9:07 AM [facility] Comment: This test was developed and its performance characteristics determined by [facility] in a manner consistent with CLIA requirements. This test has not been cleared or approved by the U.S. Food and Drug Administration. HITESH-2, S Negative Negative 11/04/2023 9:07 AM [facility] Comment: This test was developed and its performance characteristics determined by [facility] in a manner consistent with CLIA requirements. This test has not been cleared or approved by the U.S. Food and Drug Administration. HITESH-3, S Negative Negative 11/04/2023 9:07 AM [facility] Comment: This test was developed and its performance characteristics determined by [facility] in a manner consistent with CLIA requirements. This test has not been cleared or approved by the U.S. Food and Drug Administration. CASPR2-IGG CBA, S Negative Negative 9:07 AM [facility] Comment: This test was developed and its performance characteristics determined by [facility] in a manner consistent with CLIA requirements. This test has not been cleared or approved by the U.S. Food and Drug Administration. CRMP-5-IGG, S Negative Negative 11/04/2023 9:07 AM [facility] Comment: This test was developed and its performance characteristics determined by [facility] in a manner consistent with CLIA requirements. This test has not been cleared or approved by the U.S. Food and Drug Administration. DPPX BALAJI IFA, S Negative Negative 9:07 AM [facility] Comment: This test was developed and its performance characteristics determined by [facility] in a manner consistent with CLIA requirements. This test has not been cleared or approved by the U.S. Food and Drug Administration. BURAK-B-R Ab CBA, S Negative Negative 2022 9:07 AM [facility] Comment: This test was developed and its performance characteristics determined by [facility] in a manner consistent with CLIA requirements. This test has not been cleared or approved by the U.S. Food and Drug Administration. GAD65 AB ASSAY 0.00 <=0.02 nmol/L 11/04/2023 9:07 AM [facility] Comment: This test was developed and its performance characteristics determined by [facility] in a manner consistent with CLIA requirements. This test has not been cleared or approved by the U.S. Food and Drug Administration. GFAP IFA, S Negative Negative 11/04/2023 9:07 AM [facility] Comment: This test was developed and its performance characteristics determined by [facility] in a manner consistent with CLIA requirements. This test has not been cleared or approved by the U.S. Food and Drug Administration. LGI1-IGG CBA, S Negative Negative 3 9:07 AM [facility] Comment: This test was developed and its performance characteristics determined by [facility] in a manner consistent with CLIA requirements. This test has not been cleared or approved by the U.S. Food and Drug Administration. mGluR1 BALAJI IFA, S Negative Negative 023 9:07 AM [facility] Comment: This test was developed and its performance characteristics determined by [facility] in a manner consistent with CLIA requirements. This test has not been cleared or approved by the U.S. Food and Drug Administration. NEUROCHONDRIN IFA, S Negative Negative 11/04/2023 9:07 AM [facility] Comment: This test was developed and its performance characteristics determined by [facility] in a manner consistent with CLIA requirements. This test has not been cleared or approved by the U.S. Food and Drug Administration. NMDA-R Ab CBA, S Negative Negative 11/04/20 23 9:07 AM [facility] Comment: This test was developed and its performance characteristics determined by [facility] in a manner consistent with CLIA requirements. This test has not been cleared or approved by the U.S. Food and Drug Administration. LICENSED AUDIOLOGIST-2, S Negative Negative 11/04/2023 9:07 AM [facility] Comment: This test was developed and its performance characteristics determined by [facility] in a manner consistent with CLIA requirements. This test has not been cleared or approved by the U.S. Food and Drug Administration. LICENSED AUDIOLOGIST-TR, S Negative Negative 11/04/2023 9:07 AM [facility] Comment: This test was developed and its performance characteristics determined by [facility] in a manner consistent with CLIA requirements. This test has not been cleared or approved by the U.S. Food and Drug Administration. Test Performed by: [address] [address] Revenue Field Auditor: Elian Brar M.D. Ph.D.; IA# [id number] Blood BLOOD SPECIMEN / Unknown Butterfly / Unknown 10/26/2023 4:48 PM BUNDLE BREAKER 10/26/2023 4:53 PM BUNDLE BREAKER Nita Stewart NP SEND OUTS [facility] [address] [place] [id number], * ANTINUCLEAR ANTIBODY BY IFA (10/26/2023 4:48 PM BUNDLE BREAKER) ANTINUCLEAR ANTIBODY (JOHN) Negative Negative 10/27/2023 12:54 PM BUNDLE BREAKER [facility] Blood BLOOD SPECIMEN / Unknown Butterfly / Unknown 10/26/2023 4:48 PM BUNDLE BREAKER 10/26/2023 4:53 PM BUNDLE BREAKER Narrative [facility] - 10/27/2023 12:54 PM BUNDLE BREAKER Method: JOHN screen performed by (IFA) on HEP-2 substrate, IgG Nita Stewart NP CHEMISTRY [facility] [address] [place] [address], * (ABNORMAL) CBC WITH AUTO DIFFERENTIAL (10/26/2023 4:48 PM BUNDLE BREAKER) WHITE BLOOD COUNT 6.7 4.5 - 11.0 thou/cu mm 10/26/2023 5:07 PM BUNDLE BREAKER [facility] RED BLOOD COUNT 4.05(L) 4.30 - 5.90 mil/cu mm 10/26/2023 5:07 PM BUNDLE BREAKER [facility] HEMOGLOBIN 12.8(L) 13.5 - 17.5 g/dL 10/26/2023 5:07 PM BUNDLE BREAKER [facility] HEMATOCRIT 37.6 37.0 - 53.0 % 10/26/2023 5:07 PM BUNDLE BREAKER [facility] MCV 93 80 - 100 fL 10/26/2023 5:[address] [facility] MCH 31.6 26.0 - 34.0 pg 10/26/2023 5:[address] [facility] MCHC 34.0 32.0 - 36.0 g/dL 10/26/2023 5:[address] [facility] RDW 13.3 11.5 - 15.5 % 10/26/2023 5:[address] [facility] PLATELET COUNT 226 140 - 440 thou/cu mm 10/26/2023 5:[address] [facility] MPV 10.3 6.5 - 11.0 fL 10/26/2023 5:[address] [facility] NRBC 0.0 % 10/26/2023 5:[address] [facility] ABS NRBC 0.0 thou /cu mm 10/26/2023 5:[address] [facility] % NEUT 53.3 % 10/26/2023 5:[address] [facility] % LYMPH 27.2 % 10/26/2023 5:[address] [facility] % MONO 14.3 % 10/26/2023 5:[address] [facility] % EOS 3.7 % 10/26/2023 5:[address] [facility] % BASO 0.9 % 10/26/2023 5:[address] [facility] % IMMATURE GRAN (METAS,MYELOS,NV OS) 0.6 % 10/26/2023 5:[address] [facility] ABSOLUTE NEUTROPHILS 3.6 1.7 - 7.0 thou/cu mm 10/26/2023 5:[address] [facility] ABSOLUTE LYMPHOCYTES 1.8 0.9 - 2.9 thou/cu mm 10/26/2023 5:[address] [facility] ABSOLUTE MONOCYTES 1.0(H) <0.9 thou/cu mm 10/26/2023 5:07 PM BUNDLE BREAKER [facility] ABSOLUTE EOSINOPHILS 0.3 <0.5 thou/cu mm 10/26/2023 5:07 PM BUNDLE BREAKER [facility] ABSOLUTE BASOPHILS 0.1 <0.3 thou/cu mm 10/26/2023 5:07 PM BUNDLE BREAKER [facility] ABSOLUTE IMMATURE GRANULOCYTES(MET ,MYELOS,PROS) 0.0 <0.3 thou/cu mm 10/26/2023 5:07 PM BUNDLE BREAKER [facility] Blood BLOOD SPECIMEN / Unknown Butterfly / Unknown 10/26/2023 4:48 PM BUNDLE BREAKER 10/26/2023 4:54 PM BUNDLE BREAKER Nita Stewart NP HEMATOLOGY [facility] [address] [place] [address], * (ABNORMAL) LACOSAMIDE (VIMPAT) (10/26/2023 4:48 PM BUNDLE BREAKER) LACOSAMIDE 1.7(L) 5.0 - 10.0 ug/mL 10/29/2023 11:06 PM BUNDLE BREAKER [facility] Comment: This test was developed and its performance characteristics determined by [facility]. It has not been cleared or approved by the Food and Drug Administration. ? Limit of Detection 0.5 ??Mean plasma concentrations following maintenance dose ?200 mg/day ??4.99 +/- 2.51 ug/mL ?400 mg/day ??9.35 +/- 4.22 ug/mL ?600 mg/day 12.46 +/- 5.60 ug/mL Blood BLOOD SPECIMEN / Unknown Butterfly / Unknown 10/26/2023 4:48 PM BUNDLE BREAKER 10/26/2023 4:53 PM BUNDLE BREAKER Narrative [facility] ([facility]) - 10/29/2023 11:06 PM BUNDLE BREAKER Performed at: ??01 - [facility] [address] [place] [address] ??[id number] Revenue Field Auditor: Mu Sheth MD, Phone: ??[phone] Nita Stewart NP CHEMISTRY Performing Organization Address [facility]/ZIP Co de Phone Number [facility] ([facility]) [address] [place] [id number], * (ABNORMAL) TSH (10/26/2023 4:48 PM BUNDLE BREAKER) TSH 9.84(H) 0.27 - 4.20 uIU/mL 10/26/2023 6:01 PM BUNDLE BREAKER [facility] Blood BLOOD SPECIMEN / Unknown Butterfly / Unknown 10/26/2023 4:48 PM BUNDLE BREAKER 10/26/2023 4:53 PM BUNDLE BREAKER Narrative [facility] - 10/26/2023 6:01 PM BUNDLE BREAKER In Adults, TSH values between 5.00 and 10.00 uIU/ml do not necessarily indicate the presence of Hypothyroidism. Correlation with clinical findings such as presence of goiter and/or Thyroperoxidase (TPO) Antibody may be helpful. For more information please refer to SHANA 2004; 291: 228-238. Nita Stewart NP CHEMISTRY [facility] [address] [place] [address], * VALPROIC ACID,T AND F (10/26/2023 4:48 PM BUNDLE BREAKER) VALPROIC ACID,TOTAL 77.5 50.0 - 100.0 ug/mL 10/26/2023 5:35 PM BUNDLE BREAKER [facility] DATE OF LAST DOSE Not Given 10/26/2023 5:35 PM BUNDLE BREAKER [facility] TIME OF LAST DOSE Not Given 10/26/2023 5:35 PM BUNDLE BREAKER [facility] Blood BLOOD SPECIMEN / Unknown Butterfly / Unknown 10/26/2023 4:48 PM BUNDLE BREAKER 10/26/2023 4:53 PM BUNDLE BREAKER Nita Stewart NP CHEMISTRY Performing Organization Address [facility] Co de Phone Number [facility] [address] [place] [address], * VALPROIC ACID FREE (10/26/2023 4:48 PM BUNDLE BREAKER) VALPROIC ACID,FREE 6.9 6.0 - 20.0 ug/mL 10/26/2023 8:37 PM BUNDLE BREAKER [facility] DATE OF LAST DOSE Not Given 10/26/2023 8:37 PM BUNDLE BREAKER [facility] TIME OF LAST DOSE Not Given 10/26/2023 8:37 PM BUNDLE BREAKER [facility] Blood BLOOD SPECIMEN / Unknown Butterfly / Unknown 10/26/2023 4:48 PM BUNDLE BREAKER 10/26/2023 5:35 PM BUNDLE BREAKER Nita Stewart NP CHEMISTRY Performing Organization Address [facility] Co de Phone Number [facility] [address] [place] [address], * (ABNORMAL) AMMONIA (10/26/2023 4:48 PM BUNDLE BREAKER) AMMONIA 69(H) 11 - 51 umol/L 10/26/2023 5:34 PM BUNDLE BREAKER [facility] Blood BLOOD SPECIMEN / Unknown Butterfly / Unknown 10/26/2023 4:48 PM BUNDLE BREAKER 10/26/2023 4:52 PM BUNDLE BREAKER Narrative [facility] - 10/26/2023 5:34 PM BUNDLE BREAKER 1. ??Sulfasalazine and its metabolite Sulfapyridine at therapeutic concentrations may lead to falsely low results. 2. ??Temozolomide and its metabolite MTIC may lead to falsely elevated results, and its metabolite AIC may lead to falsely low results. Nita Stewart NP CHEMISTRY [facility] [address] [place] [address], [place] * (ABNORMAL) COMP METABOLIC PANEL (10/26/2023 4:48 PM BUNDLE BREAKER) SODIUM 133(L) 136 - 145 mmol/L 10/26/2023 5:35 PM BUNDLE BREAKER [facility] POTASSIUM 4.4 3.5 - 5.1 mmol/L 10/26/2023 5:[address] [facility] CHLORIDE 98 98 - 107 mmol/L 10/26/2023 5:[address] [facility] CO2,TOTAL 25 22 - 29 mmol/L 10/26/2023 5:[address] [facility] ANION GAP 10 5 - 18 10/26/2023 5:[address] [facility] GLUCOSE 260(H) 70 - 99 mg/dL 10/26/2023 5:[address] [facility] CALCIUM 9.7 8.6 - 10.0 mg/dL 10/26/2023 5:[address] [facility] BUN 8 6 - 20 mg/dL 10/26/2023 5:[address] [facility] CREATININE 0.75 0.70 - 1.20 mg/dL 10/26/2023 5:[address] [facility] BUN/CREAT RATIO 11 10 - 20 5:[address] [facility] eGFR >90 >90 mL/min/1.7 3m2 10/26/2023 5:[address] [facility] Comment:As of 2022, eG FR is calculated by the CKD-EPI creatinine equation without race adjustment. ??eGFR can be influenced by muscle mass, exercise, and diet. ??The reported eGFR is an estimation only and is only applicable if the renal function is stable. ALBUMIN 4.1 4.0 - 4.9 g/dL 10/26/2023 5:35 PM BUNDLE BREAKER [facility] PROTEIN,TOTAL 6.9 6.0 - 8.0 g/dL 10/26/2023 5:35 PM BUNDLE BREAKER [facility] BILIRUBIN,TOTAL 0.4 0.0 - 1.2 mg/dL 10/26/2023 5:35 PM BUNDLE BREAKER [facility] ALK PHOSPHATASE 81 40 - 129 IU/L 10/26/2023 5:35 PM BUNDLE BREAKER [facility] ALT (SGPT) 27 10 - 50 IU/L 10/26/2023 5:35 PM BUNDLE BREAKER [facility] AST (SGOT) 36 10 - 50 IU/L 10/26/2023 5:35 PM BUNDLE BREAKER [facility] Blood BLOOD SPECIMEN / Unknown Butterfly / Unknown 10/26/2023 4:48 PM BUNDLE BREAKER 10/26/2023 4:53 PM BUNDLE BREAKER Nita Stewart NP CHEMISTRY [facility] [address] [place] [address], * Continuous Video EEG Monitoring (10/26/2023 2:54 PM BUNDLE BREAKER) Narrative Vu Guerrero MBBS - 10/26/2023 2:54 PM BUNDLE BREAKER Vu Guerrero MBBS ? 11/01/2023 12:11 PM [facility] senior care monitoring/ video EEG report Name: Bipin Rivera Test Number: ??See below Test date: 10/26/23- 11/01/23 : 1970 Referring Service: ??@SERVDEPT@ Age: 53 y.o. Referring Physician: HAMILTON Ramirez Procedure: videoEEG/ LTM Interpreting Physician: Vu Guerrero MD Introduction: ??The patient is a 53 y.o. old male with a history of recurrent events of bizarre behavior, intense sweating concerning for seizures. This video EEGmonitoring study was done in order to monitor for seizures and determine the nature of the events. ??The patient is currently on following neuroactive medications. Valproic acid 0200-6913 mg , lacosamide 50 mg twice daily. Procedural details: This is a 21-channel digital EEG performed using the international 10-20 system of electrode placement. Multiple reformatable montages were used in review. Video recording was available for review. Physician access to data was throughout the recording period. A daily report, as below, was generated and updated and signed at least once every 24 hour period from the start of the EEG monitoring. Day 1 report - (Study date: 10/26/2023,Study duration: 12h 01m, Study #[id number]) Indication: Unchanged, as detailed above. Procedural details: Unchanged, as detailed above. Interictal EEG Samples: Symmetric wakeful low voltage background with posterior dominant rhythm up to 9-10 Hz. ??Interictal EEG samples during stage II sleep demonstrated sleep symmetric V waves, K complexes, and sleep spindles. ??No abnormalities were activated by sleep. Ictal Recordings: During this period the patient had none of their typical events. Summary: During this day of recording no events were recorded. ?? Monitoring was continued in order to record the patient? s typical events. On this day of recording, patient received valproic acid 1500-500 mg, lacosamide 50 mg twice daily Day 2 report - (Study date: 10/27/2023,Study duration: 23h 50m, Study #[id number]) Indication: Unchanged, as detailed above. Procedural details: Unchanged, as detailed above. Interictal EEG Samples: Symmetric wakeful low voltage background with posterior dominant rhythm up to 9-10 Hz. ??Interictal EEG samples during stage II sleep demonstrated sleep symmetric V waves, K complexes, and sleep spindles. ??No abnormalities were activated by sleep. Ictal Recordings: Events [0837]: Patient had an episode of sweating. ??He was lying recumbent in the bed, behaviorally asleep with eyes closed. ??He woke up and touched his face. ??No behavioral changes were evident. ??Shortly afterwards, he was greeted by care provider in the room and responded appropriately and reported the event of sweating. He also described facial numbness around this time. Patient retrospectively reported momentary blacking out. Around this event, sweat artifact could be identified, but no other EEG or EKG changes were evident. Summary: During this day of recording event were recorded. ?? Monitoring was continued in order to record the patient? s typical events. On this day of recording, patient received valproic acid 500 mg, and lacosamide 50-50 mg Day 3 report - (Study date: 10/28/2023,Study duration: 23h 57m, Study #[id number]) Indication: Unchanged, as detailed above. Procedural details: Unchanged, as detailed above. Interictal EEG Samples: Symmetric wakeful low voltage background with posterior dominant rhythm up to 9-10 Hz. ??Interictal EEG samples during stage II sleep demonstrated sleep symmetric V waves, K complexes, and sleep spindles. ??No abnormalities were activated by sleep. Ictal Recordings: None Summary: During this day of recording no event were recorded. ?? Monitoring was continued in order to record the patient? s typical events. On this day of recording, patient received lacosamide 50 mg Day 4 report - (Study date: 10/29/2023,Study duration: ??23h 35m, Study #[id number]) Indication: Unchanged, as detailed above. Procedural details: Unchanged, as detailed above. Interictal EEG Samples: Symmetric wakeful low voltage background with posterior dominant rhythm up to 9-10 Hz. ??Interictal EEG samples during stage II sleep demonstrated sleep symmetric V waves, K complexes, and sleep spindles. ??No abnormalities were activated by sleep. Ictal Recordings: None Summary: During this day of recording no event were recorded. ?? Monitoring was continued in order to record the patient? s typical events. Day 5 report - (Study date: 10/30/2023,Study duration: ??23h 57m, Study #[id number]) Indication: Unchanged, as detailed above. Procedural details: Unchanged, as detailed above. Interictal EEG Samples: Symmetric wakeful low voltage background with posterior dominant rhythm up to 9-10 Hz. ??Interictal EEG samples during stage II sleep demonstrated sleep symmetric V waves, K complexes, and sleep spindles. ?? Very rare right temporal sharp waves in sleep. Ictal Recordings: Event [circa 2300]: Patient reported event of sweating around 2300. ??He reported that he pressed the event button, but no such button press was captured, neither was any event documented. ?? Video review of that timeframe does not identify any event. Around that timeframe no EEG changes were seen. Summary: During this day of recording retrospectively reported event were recorded. ??Monitoring was continued in order to record the patient? s typical events. Day 6 report - (Study date: 10/31/2023,Study duration: ??23h 47m, Study #[id number]) Indication: Unchanged, as detailed above. Procedural details: Unchanged, as detailed above. Interictal EEG Samples: Symmetric wakeful low voltage background with posterior dominant rhythm up to 9-10 Hz. ??Interictal EEG samples during stage II sleep demonstrated sleep symmetric V waves, K complexes, and sleep spindles. ?? Very rare right temporal sharp waves in sleep. Ictal Recordings: Event [0858]: A subclinical subtle electrographic seizure was recorded. ??On EEG it was characterized by appearance of rhythmic monomorphic theta range activity over the right temporal head region which evolved into polymorphic delta-theta range activity over the same head region. ??On video no clinical changes were seen. The event lasted approximately 20 seconds. Summary: During this day of recording ??event was recorded. ?? Monitoring was continued in order to record the patient? s typical events. Near the end of the day, the patient was loaded with lacosamide 200 mg IV x1. ??Patient also received clonazepam 0.5 mg near the end of the day. Day 7 report - (Study date: 11/01/2023,Study duration: ??10h 42m, Study #[id number]) Indication: Unchanged, as detailed above. Procedural details: Unchanged, as detailed above. Interictal EEG Samples: Symmetric wakeful low voltage background with posterior dominant rhythm up to 9-10 Hz. ??Interictal EEG samples during stage II sleep demonstrated sleep symmetric V waves, K complexes, and sleep spindles. ?? Very rare right temporal sharp waves in sleep. Ictal Recordings: None Summary: During this day of recording ??event was recorded. ?? Monitoring was discontinued. On this day of recording, the patient received lacosamide 100 mg Overall summary of EEG and Behavior: The interictal EEG was abnormal. ? ? Very rare right temporal (F8) sharp waves. ? ? 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 Typical event of perspiration of face and subjective tangling of lips, and momentary blacking out without surface EEG changes was recorded. ?? Patient retrospectively reported (without event button press) other events as above. No EEG changes were noted around the reported time frame ?? A brief subtle subclinical right temporal seizure was recorded out of wakefulness on day 6 of recording. ? ? Event of unusual behavior was not captured. ? ? Upon discharge, patient was restarted on Lacosamide and maintenance dose was increased. Valproic acid was not resumed. Clinical Correlation: This 7 day EEG recording was an abnormal awake and asleep EEG. The presence of rare right temporal epileptiform discharges suggest an increased risk of focal onset seizures. Event of facial sweating, with tingling around the mouth and subjective momentary blacking out was not associated with EEG changes. ??Epileptic nature, without surface EEG changes, may be possible but is not definitive. ??Please correlate clinically and or consider ruling out other potential explanations. Pages MRI and okay A subtle subclinical right temporal seizure was recorded out of wakefulness [after withdrawal of all antiseizure medications]. Event of unusual behavior was not captured Vu Guerrero MD, SIMON, CATHERINE Continuous video EEG study completed from 10/26/23-11/01/23, with a total recording time of (141Hours: 49Minutes) Nita Stewart NP NEUROLOGY ORD * SCAN-CARDIAC STRIP (10/26/2023 11:04 AM BUNDLE BREAKER) Scanner OTHER from Last 3 Months Advance Directives Latest Code Status on File Code Status Date Activated Date Inactivated Comments Full Code 10/26/2023 9:57 AM 11/01/2023 1:47 PM Question Answer Comments Code Status Discussion: Reviewed Preferences Code Status History Code Status Date Activated Date Inactivated Comments Full Code 05/27/2023 10:01 AM 05/27/2023 3:46 PM Question Answer Comments Code Status Discussion: Per Existing Order Care Teams Business Control Manager Relationship Specialty Start Date End Date Tapan Mcintyre MD [address] [place] [address] PCP - General Family Practice 05/14/23
--- OUTSIDE RECORDS SUMMARY | 2023-12-21 11:29 | XMS_ITS | Continuity of Care Document ---
Author Name Unknown Organization [facility] Address [address] [place] [address] Phone Care Team Providers Care [employer] Worker Name Role Phone Nolberto SALEH, PhD, Howard Unavailable Unavai lable Allergies, Adverse Reactions, Alerts Substance Reaction Status Criticality bee venom protein (honey bee) EdemaDyspnea Active No Information Medications Medication Instructions Dosage Effective Dates (start - stop) Status Comments ASPIRIN (unknown strength) Not Available - Active DICLOFENAC SODIUM (unknown strength) Not Available - Active DIVALPROEX SODIUM (unknown strength) Not Available - Active IBUPROFEN (unknown strength) Not Available - Active EPINEPHRINE (unknown strength) Not Available - Active VICTOZA 2-BETHANIE (unknown strength) Not Available - Active LEVOTHYROXINE SODIUM (unknown strength) Not Available - Active SENNOSIDES-DOCUSATE SODIUM (unknown strength) Not Available - Active Procedures Procedure Date OFFICE/OUTPATIENT VISIT EST Phone Office/Outpatient Visit,Est, Low 2022 Postop Followup Visit [facility], Facetectomy/Foraminotomy, Lumbar ( Stenosis) Lami, Facetectomy/Foraminotomy, Lumbar ( Stenosis) Office/Outpatient Visit,New, Mod 2022 Advance Directives Directive Yes / No Effective Date File Name No Information Encounters Encounter Description Practice Location Reason(s) For Visit Diagnoses Date Provider Providers Copied on Encounter [facility], [address], [place], [id number], [place] tel:[phone] [facility] No Information 4 Nolberto Lawrence. [facility], [address], [place], [address], [place]. tel:[phone] OFFICE/OUTPAT IENT VISIT EST Phone [facility], [address], [place], [place], [id number], [place] tel:[phone] [facility] No Information 3 Nolberto Lawrence. [facility], [address], [place], [address], [place]. [phone] Referring Provider: Joe Smith, [facility] And [address], [address]. tel:[phone] Office/Outpat ient Visit,Est, Low [facility], [address], [place], [place], [id number], [place] tel:[phone] [facility] Encounter for follow-up examination after completed treatment for conditions other than malignant neoplasm 3 Nolberto Lawrence. [facility], [address], [place], [address], [place]. tel:[phone] Referring Provider: Joe Smith, [facility] [address], [address]. tel:[phone] [facility], [address], [place], [id number], [place] tel:[phone] [facility] Encounter for other specified surgical aftercare 3 Oni Gillis. [facility], [address], [place], [place], [address] , [place]. tel:[phone] Referring Provider: Joe Smith, [facility] [address], [address]. tel:[phone] [facility], [address], [place], [place], [address], [place] tel:[phone] [facility] No Information 3 Oni Gillis. [facility], [address], [place], [place], [id number] , [place]. tel:[phone] Referring Provider: Joe Smith, [facility] [address] [place] [address], [address]. tel:[phone] [facility], [address], [place], [address], [place] tel:[phone] [facility] No Information 3 Nolberto Lawrence. [facility], [address], [facility] [place], [address], [place]. tel:[phone] Referring Provider: Joe Smith, [facility] [address] [place] [address], [address]. tel:[phone] Office/Outpat ient Visit,New, Mod [facility], [address], [place], [place], [id number], [place] tel:[phone] [facility] Spinal stenosis, lumbar region with neurogenic claudication 3 Nolberto Lawrence. [facility], [address], [place], [address], [place]. tel:[phone] Referring Provider: Joe Smith, [facility] [address], [address]. tel:[phone] Family History Family Member Type Diagnosis Age At Onset No Information Payers Payer name Insurance type Covered alliance party ID Ziyadrai shainakaren(s) Reese TEJADA [facility] 2021 CI [id number] Social History Type Description Quantity Date Captured Comments Alcohol Use Details Unknown Caffeine Use Details Unknown Tobacco Use Status No Information Smoking Status No Information Sex Male Chief Complaint And Reason For Visit No Information Reason For Referral Reason For Referral No Information Plan Of Treatment Date Type Action Status Appointment Bipin Rivera BOOKED Appointment Hullett, Bipin BOOKED History Of Present Illness Encounter Date Complaint History Of Prese nt Illness No Information Functional Status Date Functional Assessmen t No Information Instructions Date Instruction Additional Infor mation No Information Assessments Type Assessment Date No Information Patient Care Teams Name Effective Dates (start - stop) Status Members No Information
== END 2023-12-21 11:23 | disposition home or self-care (01) ==
PROVIDERS: PCP Family Medicine; Visit Provider Family Medicine
DX: E78.2 Mixed hyperlipidemia (principal); E03.9 Hypothyroidism, unspecified; E11.9 Type 2 diabetes mellitus without complications; Z13.0 Encounter for screening for diseases of the blood and blood-forming organs and certain disorders involving the immune mechanism; Z79.4 Long term (current) use of insulin
CPT/HCPCS: 80048; 80061; 84443; 85025

== ENCOUNTER 2024-01-25 12:41 | Outpatient (CLI) | payer MEDICAID, SELFPAY ==
--- NOTE | 2024-01-25 13:00 | MR_ITS ---
[facility] [address] [facility] [address] Phone:[phone] Fax:[phone] Referring Physician Information: Tapan Mcintyre M.D. [address] [facility] [address] Phone:?[phone] Fax:[phone] Patient:Byron Rivera D.O.B:?1970 Sex:?Male Phone:?[phone] [facility] MRN:?[id number] Exam Date:?01/25/2024 EXAM: MR CERVICAL SPINE WITHOUT CONTRAST CLINICAL INFORMATION: Cervical pain. CORRELATIVE IMAGES: No prior imaging submitted. TECHNICAL INFORMATION: 1.5T MRI. Sagittal and axial T2, sagittal T1, STIR, axial T2 GRE. CONTRAST ADMINISTERED: None.?CONTRAST DISCARDED: None. SEDATION: None. INTERPRETATION:?Spinal Cord: No spinal cord signal abnormality. No Chiari malformation. Disc/Facet Degeneration/Operative changes: Mild central bulge T1-2 without stenosis. C7-T1 disc morphology is normal. Mild left foraminal stenosis due to mild facet arthrosis without C8 impingement. Patent right foramen. C6-7, broad central to right posterolateral annular bulge and shallow rightward protrusion contributes to mild to moderate central stenosis, mild broad flattening of ventral cord. Uncinated spurring contributes to moderate left and mild right foraminal stenosis with left C7 impingement. C5-6, small to moderate central disc herniation with moderate central stenosis and cord indentation/compression. Moderate to marked right greater than left foraminal stenosis with C6 impingement. C4-5, trace retrolisthesis with annular bulging and small central protrusion, mild to moderate central stenosis with broad indentation of the ventral cord. No foraminal neural impingement. C3-4, milder central protrusion and stenosis with ventral cord contouring, no significant foraminal compromise. C2-3 Central canal and foramina are patent with mild posterior annular bulging. No significant atlantoaxial or atlanto-occipital pathology. Osseous and paraspinous structures: Lordotic alignment of cervical spine. Mild developmental canal narrowing. Bone marrow signal is unremarkable. Paraspinal soft tissues are unremarkable. Vertebral artery flow voids are present. CONCLUSION: Cervical spondylosis with mild underlying developmental canal narrowing, and these findings: 1. Broad disc herniation C5-C6 contributes to moderate central stenosis and cord compression. 2. Smaller disc herniations with mild to moderate central stenosis and ventral cord indentation, eccentric to the right at C6-7, centrally at C4-5 and minimally at C3-4. 3. Moderate to marked right greater than left C5-6 and moderate left C6-7 foraminal stenosis with neural impingement. RSP Electronically signed on 01/26/2024 3:54:00 PM by Markell Vega M.D.
== END 2024-01-25 12:42 | disposition home or self-care (01) ==
LOC: MRI 12:41
PROVIDERS: PCP Family Medicine; Visit Provider Family Medicine
DX: M54.2 Cervicalgia (principal); M48.02 Spinal stenosis, cervical region; M50.221 Other cervical disc displacement at C4-C5 level; M50.223 Other cervical disc displacement at C6-C7 level
CPT/HCPCS: 72141

== ENCOUNTER 2024-07-27 17:33 | Outpatient (REF) | payer MEDICARE, SELFPAY | END 2024-07-27 17:34 | disposition home or self-care (01) | LOC: NPINS 17:33 | PROVIDERS: PCP Family Medicine; Visit Provider Psychiatry & Neurology Epilepsy | DX: G40.209 Localization-related (focal) (partial) symptomatic epilepsy and epileptic syndromes with complex partial seizures, not intractable, without status epilepticus (principal); Z79.899 Other long term (current) drug therapy | CPT/HCPCS: 80366 ==

== ENCOUNTER 2024-09-19 14:15 | Outpatient (CLI) | payer MEDICAID, SELFPAY ==
--- OUTSIDE RECORDS SUMMARY | 2024-09-19 14:19 | XMS_ITS | Continuity of Care Document ---
Author Organization [facility] Address [address] [place] [address] Phone Care Team Providers Care [employer] Fabricator Name Role Phone Nolberto SALEH, PhD, Howard Unavailable Unavai lable Allergies, Adverse Reactions, Alerts Substance Reaction Status Criticality bee venom protein (honey bee) EdemaDyspnea Active No Information Medications Medication Instructions Dosage Effective Dates (start - stop) Status Comments PREGABALIN (unknown strength) Not Available - Active ASPIRIN (unknown strength) Not Available - Active [...] Not Available - Active Procedures Procedure Date Office/Outpatient Visit,Est, Mod 2023 X-Ray Exam Of Neck Spine, 4+ Views OFFICE/OUTPATIENT VISIT EST Phone [facility] For Excision Of Lesion, Lumbar (Cys t, Lipoma etc.) - PA Lami For Excision Of Lesion, Lumbar (Cys t, Lipoma etc.) OFFICE/OUTPATIENT VISIT EST Phone Office/Outpatient Visit,V[place] Tim 2022 Postop Followup Visit [facility], Facetectomy/Foraminotomy, Lumbar ( Stenosis) Lami, Facetectomy/Foraminotomy, Lumbar ( Stenosis) Office/Outpatient Visit,New, Mod 2022 Advance Directives Directive Yes / No Effective Date File Name No Information Encounters Encounter Description Practice Location Reason(s) For Visit Diagnoses Date Provider Providers Copied on Encounter [facility], [address], [place], [place], [id number] , [place] tel: [phone] [facility] No Information 4 Nolberto Lawrence. [facility], [address], [place], [address], [place]. tel: [phone] Office/Outpa tient Visit,Est, Mod [facility], [address], [place], [place], [id number] , [place] tel: [phone] [facility] Spinal stenosis, lumbar region with neurogenic claudicationSpin al stenosis, cervical region 4 Nolberto Lawrence. [facility], [address], [place], [address], [place]. tel: [phone] Referring Provider: Joe Smith, [address], [address]. [phone] OFFICE/OUTPA TIENT VISIT EST Phone [facility], [address], [place], [place], [address] , [place] tel: [phone] [facility] No Information 4 Nolberto Lawrence. [facility] [place], [address], [place], [address], [place]. tel:[phone] Referring Provider: Joe Smith, [address], [address]. tel:[phone] [facility], [address], [place], [place], [address] , [place] tel: [phone] [facility] No Information 4 Oni Gillis. [facility], [address], [place], [place], [id number] , [place]. tel:[phone] Referring Provider: Joe Smith, [facility] [address] [place] [address], [address]. tel:[phone] [facility], [address], [facility], [id number] , [place] [phone] [facility] No Information 4 Nolberto Lawrence. [facility] [place], [address], [place], [address], [place]. [phone] Referring Provider: Joe Smith, [facility] [address] [place] [address], [address]. [phone] OFFICE/OUTPA TIENT VISIT EST Phone [facility], [address], [facility], [id number] , [place] tel:[phone] [facility] No Information 3 Nolberto Lawrence. [facility] [place], [address], [place], [address], [place]. [phone] Referring Provider: Joe Smith, [facility] [address] [place] [address], [address]. tel:[phone] Office/Outpa tient Visit,Est, Low [facility], [address], [facility], [id number] , [place] tel:[phone] [facility] Encounter for follow-up examination after completed treatment for conditions other than malignant neoplasm 3 Nolberto Lawrence. [facility] [place], [address], [place], [address], [place]. [phone] Referring Provider: Joe Smith, [facility] [address] [place] [address], [address]. tel:[phone] [facility], [address], [facility], [id number] , [place] tel:[phone] [facility] Encounter for other specified surgical aftercare 3 Oni Gillis. [facility], [address], [facility], [place], [address] , [place]. tel:[phone] Referring Provider: Joe Smith, [facility] [address], [address]. [phone] [facility], [address], [place], [address] , [place] tel:[phone] [facility] No Information 3 Oni Gillis. [facility] [place] [facility], [address], [facility], [place], [address] , [place]. [phone] Referring Provider: Joe Smith, [address], [address]. [phone] [facility], [address], [facility], [address] , [place] tel:[phone] [facility] No Information 3 Nolberto Lawrence. [facility] [place] [facility], [address], [place], [address], [place]. [phone] Referring Provider: Joe Smith, [facility] [address], [address]. tel:[phone] Office/Outpa tient Visit,New, Mod [facility], [address], [facility], [place], [address] , [place] [phone] [facility] Spinal stenosis, lumbar region with neurogenic claudication 3 Nolberto Lawrence. [facility] [place], [address], [facility] [place], [address], [place]. tel:[phone] Referring Provider: Joe Smith, [address], [address]. tel:[phone] Family History Family Member Type Diagnosis Age At Onset No Information Payers Payer name Insurance type Covered green party ID Brittany partida(s) Reese TEJADA All2021 CI [id number] Social History Type Description Quantity Date Captured Comments Alcohol Use Details Unknown Caffeine Use Details Unknown Tobacco Use Status No Information Smoking Status No Information Sex Male Chief Complaint And Reason For Visit No Information Reason For Referral Reason For Referral No Information History Of Present Illness Encounter Date Complaint History Of Prese nt Illness No Information Functional Status Date Functional Assessmen t No Information Instructions Date Instruction Additional Infor mation No Information Assessments Type Assessment Date No Information Patient Care Teams Name Effective Dates (start - stop) Status Members No Information
--- OUTSIDE RECORDS SUMMARY | 2024-09-19 14:19 | XMS_ITS | Clinical Summary ---
Author Organization [employer] [facility] Address [place], [place] [address] Care Team Providers Care Wall To Wall Carpet Installer Name Role Phone Tapan Mcintyre MD Primary Care Provider + [facility], [place] Unavailable Allergies Active Allergy Reactions Criticality Noted Date Comments Hymenoptera Allergenic Extract 07/09 Bee Venom Protein (Honey Bee) Edema,Dyspnea High 03/2019 Medications Medication Sig Dispensed Refills Start Date End Date Status blood sugar diagnostic (Accu-Chek Guide test strips) strip 1 TEST TWO TIMES A DAY 12/11/2021 Active Blood-Glucose Meter (Accu-Chek Guide Glucose Meter) 1 KIT ONCE 12/12/2021 Active lancets (Accu-Chek Softclix Lancets) TEST TWO TIMES A DAY 12/11/2021 Active acetaminophen (TYLENOL EXTRA STRGTH) 500 mg tablet Take 2 Tablets (1,000 mg) by mouth every 6 hours. Max acetaminophen dose: 4000mg in 24 hrs. 12/31/2023 Active WalkerIndications:S roxanna stenosis, lumbar region, with neurogenic claudication Walker with front wheels for home use. Anticipated use for 4 weeks 1 Each 12/31/2023 Active ibuprofen (ADVIL; MOTRIN) 400 mg tabletIndications:S roxanna stenosis, lumbar region, with neurogenic claudication Take 1 Tablet (400 mg) by mouth every 4 hours if needed for Pain. Take with food. 01/04/2024 Active oxyCODONE (ROXICODONE) 5 mg immediate release tabletIndications:S roxanna stenosis, lumbar region, with neurogenic claudication Take 1-2 Tablets (5-10 mg) by mouth every 4 hours if needed for Pain (moderate to severe pain). Give 1 tab for pain 1-5, give two tabs for pain 6-10. 20 Tablet 01/04/2024 Active Senna Plus 8.6-50 mg tabletIndications:C onstipation, unspecified constipation type Take 2 Tablets by mouth once daily. 01/04/2024 Active mirtazapine (REMERON) 15 mg tabletIndications:D epression, unspecified depression type Take 1 Tablet (15 mg) by mouth at bedtime. 01/04/2024 Active QUEtiapine (SEROQUEL) 50 mg tabletIndications:D epression with anxiety Take 1 Tablet (50 mg) by mouth two times daily. TAKE ONE TABLET BY MOUTH AT BEDTIME FOR 7 DAYS THEN TAKE ONE TABLET BY MOUTH TWICE A DAY 01/04/2024 Active levothyroxine (SYNTHROID) 125 mcg tabletIndications:H ypothyroidism, unspecified type Take 1 Tablet (125 mcg) by mouth once daily. 01/04/2024 Active EPINEPHrine (EpiPen) 0.3 mg/0.3 mL auto-injectorIndica tions:Allergy to bee sting Inject 0.3 mg (1 Pen) intramuscular one time if needed for Allergic Reaction. 01/04/2024 Active aspirin (ECOTRIN) 81 mg enteric coated tabletIndications:H ealthcare maintenance Take 1 Tablet (81 mg) by mouth once daily with a meal. 01/04/2024 Active insulin glargine, U-100, 100 unit/mL (3 mL) penIndications:Type 2 diabetes mellitus with other specified complication, with long-term current use of insulin (HC) Inject 15 units subcutaneous before bedtime. 01/04/2024 Active insulin aspart, U-100, (NOVOLOG FLEXPEN) 100 unit/mL (3 mL) penIndications:Type 2 diabetes mellitus with other specified complication, with long-term current use of insulin (HC) Give subcutaneous TID with meals per blood glucose (mg/dL). Don't give corrective dose for PRN, post-prandial or nocturnal glucose checks unless ordered. Blood Glucose.....Dose <70...............S Hypoglycemia Protocol 70-149..........No insulin, give prandial insulin, if ordered 150-199........1 unit 200-249........2 units 250-299........3 units 300-349........4 units 350-399........5 units 400 or greater....6 units & call MD 01/04/2024 Active lacosamide (VIMPAT) 150 mg tabletIndications:S eizure (HC) Take 2 Tablets (300 mg) by mouth at bedtime. 60 Tablet 1 01/04/2024 Active lacosamide (VIMPAT) 200 mg tabletIndications:S eizure (HC) Take 1 Tablet (200 mg) by mouth once daily. 30 Tablet 1 01/05/2024 Active Active Problems Problem Noted Date Diagnosed Date Spinal stenosis, lumbar megan on, with neurogenic claudication 12/30/2023 Spinal stenosis, lumbar megan on, with neurogenic claudication 05/27/2023 Seizure 07/24/2021 Spinal stenosis of cervical region 06/17/2021 CHI (closed head injury) 11/13/2017 Closed nondisplaced fracture of scaphoid of righ t wrist 11/12/2017 Vitamin D deficiency 07/13/2011 Pure hypercholesterolemia 07/09/2011 Depression with anxiety 07/09/2011 Toxic effect of venom(989.5) 11/19/2006 Encounters Date Type Department Care Team Description 06/27/2024 2:58 PM CDT - 06/27/2024 11:59 PM CDT Hospital Encounter [facility] [address] [place] [address] Milad Prado MD Low back pain, unspecified back pain laterality, unspecified chronicity, unspecified whether sciatica present 06/27/2024 Travel from Last 3 Months Immunizations Name [...] Types Packs/Day Years Used Date Smoking Tobacco: Former Cigarettes Smokeless Tobacco: Never Tobacco Cessation:Counseling Given: Not Answered Alcohol Use Standard Drinks/Week Comments Not Currently 0 (1 standard drink = 0.6 oz pure alcohol) every couple months, socially (2 drinks at most) Social Connections Answer Date Recorded Frequency of Communication with Friends and Fami ly 0 12/31/2023 Financial Resource Strain Answer Date R ecorded Difficulty of Paying Living Expenses 3 12/31/2023 Difficulty of Paying Living Expenses Not on file 12/31/2023 Food Insecurity Answer Date Recorded Do you worry your food will run out before you are able to buy more? 1 12/31/2023 Transportation Needs Answer Date Record ed Lack of Transportation (Medical) 1 12/31/2023 Housing Stability Answer Date Recorded What is your housing situation today? 1 12/31/2023 Sex and Gender Information Value Date Recorded Sex Assigned at Not on file Gender Identity Not on file Sexual Orientation Not on file Obstetrics History Last Filed Vital Signs Vital Sign Reading Time Taken Comments Blood Pressure 111/57 01/05/2024 12:25 AM DECAL DECORATOR Pulse 93 01/05/2024 12:25 AM DECAL DECORATOR Temperature 36.2 ??C (97.2 ??F) 01/05/2024 1 2:25 AM DECAL DECORATOR Respiratory Rate 18 01/05/2024 12:2 5 AM DECAL DECORATOR Oxygen Saturation 97% 01/05/2024 12: 25 AM DECAL DECORATOR Inhaled Oxygen Concentration - - Weight 108.2 kg (238 lb 9.6 oz) 024 11:19 AM DECAL DECORATOR Height 193 cm (6' 4) 12/30/2023 11:19 AM DECAL DECORATOR Body Mass Index 29.04 12/30/2023 11:19 AM DECAL DECORATOR Plan of Treatment Health Maintenance Due Date Last Done Comments Pneumococcal series for age 6-64 (1 of [...] 10/03/2020 10/03/2019 Tetanus booster 08/10/2021 08/10/2011, 04/08/1979 COVID-19 vaccine series (2023- season) 2024 Influenza for age 50-64 07/30/2024 08/10/2011 Tdap Completed 08/10/2011 Procedures Procedure Name Priority Date/Time Associated Diagnosis Comments MR SPINE LUMBAR WWO Routine 06/27/2024 3:08 PM CDT Low back pain, unspecified back pain laterality, unspecified chronicity, unspecified whether sciatica present LIPID PANEL Routine 02/11/2012 8:30 AM CDT Pure hypercholesterolemia from Last 3 Months or Most Recently Relevant to Health Maintenance Results * MR SPINE LUMBAR WWO (06/27/2024 3:08 PM CDT) Anatomical Region Laterality Modality Spine, LUMBAR SPINE Magnetic Res onance 06/28/2024 7:56 AM CDT Impressions 06/28/2024 7:56 AM CDT 1. Normal alignment. No fractures. 2. Interval revision that postoperative changes lumbar spine. Edema and enhancing granulation tissue within the posterior soft tissues. 3. Prominence of the basilar vertebral plexus at L4 on L5 contributes to moderate narrowing of the spinal canal. 4. Clumping of the cauda equina nerve roots at L4-5 may be secondary to changes of arachnoiditis. 5. Congenitally short pedicles. 6. Lumbar spondylosis. 7. Mild right and qthj-fq-rvzmmgwl left neural foraminal narrowing at L1-2 and L2-3. 8. At L3-4, mild narrowing of the spinal canal. Potential impingement of the traversing right L4 nerve root. Mild narrowing of the bilateral neural foramina 9. At L4-5, mild right and moderate left neural foraminal narrowing. Dictated by Kyle Vasquez MD @ 06/28/2024 7:56:41 AM (Electronically Signed) Narrative 06/28/2024 7:56 AM CDT For Patients: ??As a result of the Cures Act, medical imaging exams and procedure reports are released immediately into your electronic medical record. ??You may view this report before your referring provider. ??If you have questions, please contact your health care provider. INDICATION: Low back pain. COMPARISON: 11/11/2023. TECHNIQUE: Sagittal T1, T2, and STIR sequences. Axial T1 and T2 weighted sequences. Post gadolinium T1 weighted sequences. FINDINGS: Normal vertebral body alignment. No fractures. No vertebral body loss of height. No spondylolisthesis. Since the previous exam, interval additional postop changes in the lumbar spine with left hemilaminectomy at L1-2 and L2-3. Bilateral laminectomy at L3-4 and L4-5. Associated edema and enhancing granulation tissue within the posterior soft tissues of the operative bed. Prominent basivertebral plexus along the posterior margins of the L4 and L5 vertebral bodies contributes to moderate narrowing of spinal canal. No suspicious osseous lesions. Congenitally short pedicles contributes to overall narrowed caliber of the spinal canal. Fatty filum terminale. Clumping of the cauda equina nerve roots at the level of L4-5 (best seen on series 9 images 25-27) may be secondary to changes of arachnoiditis. T12-L1: No spinal canal neural foraminal narrowing. L1-2: Disc degeneration loss disc height. Modic type 1 endplate changes. Diffuse disc bulge eccentric to the left. Mild narrowing of the spinal canal. Mild right and kcrt-ub-efvabago left neural foraminal narrowing. Mild facet arthropathy. L2-3: Disc degeneration. Diffuse disc bulge. Mild narrowing of spinal canal. Mild right and mdsw-cm-xqmgzyvz left neural foraminal narrowing. Mild facet arthropathy. L3-4: Disc degeneration. Diffuse disc bulge. Mild narrowing of spinal canal. Right subarticular recess narrowing potential impingement of the traversing right L4 nerve root. Mild narrowing of the bilateral foramina. Mild facet arthropathy. L4-5: Disc degeneration. Diffuse disc bulge eccentric to the left. No narrowing of spinal canal. Mild right and moderate left neural foraminal narrowing. Moderate arthropathy. L5-S1: Disc degeneration post disc bulge. Tapered narrowing of thecal sac. No impingement of the traversing S1 nerve roots. Mild narrowing of bilateral foramina. Mild os arthropathy. Degenerative changes of the SI joints. Normal paraspinal soft tissues. Procedure Note Kyle Vasquez MD, PhD - 06/28/2024 For Patients: As a result of the Century Cures Act, medical imagingexams and procedure reports are released immediately into your electronicmedical record. You may view this report before your referring provider.If you have questions, please contact your health care provider. INDICATION: Low back pain. COMPARISON: 11/11/2023. TECHNIQUE: Sagittal T1, T2, and STIR sequences. Axial T1 and T2 weighted sequences.Post gadolinium T1 weighted sequences. FINDINGS: Normal vertebral body alignment. No fractures. No vertebral body loss ofheight. No spondylolisthesis. Since the previous exam, interval additional postop changes in the lumbarspine with left hemilaminectomy at L1-2 and L2-3. Bilateral laminectomy atL3-4 and L4-5. Associated edema and enhancing granulation tissue withinthe posterior soft tissues of the operative bed. Prominent basivertebral plexus along the posterior margins of the L4 andL5 vertebral bodies contributes to moderate narrowing of spinal canal. No suspicious osseous lesions. Congenitally short pedicles contributes to overall narrowed caliber of thespinal canal. Fatty filum terminale. Clumping of the cauda equina nerve roots at the level of L4-5 (best seenon series 9 images 25-27) may be secondary to changes of arachnoiditis. T12-L1: No spinal canal neural foraminal narrowing. L1-2: Disc degeneration loss disc height. Modic type 1 endplate changes.Diffuse disc bulge eccentric to the left. Mild narrowing of the spinalcanal. Mild right and lxwm-ap-pwxhrfbn left neural foraminal narrowing.Mild facet arthropathy. L2-3: Disc degeneration. Diffuse disc bulge. Mild narrowing of spinalcanal. Mild right and oall-nb-wfxnxtbc left neural foraminal narrowing.Mild facet arthropathy. L3-4: Disc degeneration. Diffuse disc bulge. Mild narrowing of spinalcanal. Right subarticular recess narrowing potential impingement of thetraversing right L4 nerve root. Mild narrowing of the bilateral foramina.Mild facet arthropathy. L4-5: Disc degeneration. Diffuse disc bulge eccentric to the left. Nonarrowing of spinal canal. Mild right and moderate left neural foraminalnarrowing. Moderate arthropathy. L5-S1: Disc degeneration post disc bulge. Tapered narrowing of thecal sac.No impingement of the traversing S1 nerve roots. Mild narrowing ofbilateral foramina. Mild os arthropathy. Degenerative changes of the SI joints. Normal paraspinal soft tissues. IMPRESSION: 1. Normal alignment. No fractures. 2. Interval revision that postoperative changes lumbar spine. Edema andenhancing granulation tissue within the posterior soft tissues. 3. Prominence of the basilar vertebral plexus at L4 on L5 contributes tomoderate narrowing of the spinal canal. 4. Clumping of the cauda equina nerve roots at L4-5 may be secondary tochanges of arachnoiditis. 5. Congenitally short pedicles. 6. Lumbar spondylosis. 7. Mild right and gypk-qg-ateyzvra left neural foraminal narrowing at L1-2and L2-3. 8. At L3-4, mild narrowing of the spinal canal. Potential impingement ofthe traversing right L4 nerve root. Mild narrowing of the bilateral neuralforamina 9. At L4-5, mild right and moderate left neural foraminal narrowing. Dictated by Kyle Vasquze MD @ 06/28/2024 7:56:41 AM (Electronically Signed) Milad Carson MD MR * (ABNORMAL) LIPID PANEL (02/11/2012 8:30 AM CDT) CHOLESTEROL,TOTAL 158 100 - 199 mg/dL [facility] TRIGLYCERIDES 76 <150 mg/dL [facility] HDL CHOLESTEROL 36(L) >40 mg/dL [facility] CHOL/HDL RATIO 4.39 <4.50 [facility] LDL CHOLESTEROL 107 <131 mg/dL [facility] PATIENT STATUS Fasting [facility] Blood specimen (specimen) BLOOD SPECIMEN / Unknown 02/11/2012 8:30 AM CDT 02/11/2012 8:26 AM CDT Monika Davies MD CHEMISTRY [facility] [address] [place] [address] from Last 3 Months or Most Recently Relevant to Health Maintenance Advance Directives * Full Code (Latest Code Status on File) Date Activated Date Inactivated Comments 12/30/2023 7:04 PM 01/05/2024 12:03 PM Question Answer Comments Code Status Discussion: Per Existing Order * Full Code Date Activated Date Inactivated Comments 12/30/2023 11:17 AM 12/30/2023 7:04 PM Question Answer Comments Code Status Discussion: Unable to Assess Preferences, Provider to review later * Full Code Date Activated Date Inactivated Comments 10/26/2023 9:57 AM 11/01/2023 1:47 PM Question Answer Comments Code Status Discussion: Reviewed Preferences * Full Code Date Activated Date Inactivated Comments 05/27/2023 10:01 AM 05/27/2023 3:46 PM Question Answer Comments Code Status Discussion: Per Existing Order Care Teams Wall To Wall Carpet Installer Relationship Specialty Start Date End Date Tapan Mcintyre MD [address] [place] [address] PCP - General Family Practice 05/14/[address] [address] 12/31/23
--- NOTE | 2024-09-19 14:30 | CRLHL7_ITS ---
For Patients: As a result of the Century Cures Act, medical imaging exams and procedure reports are released immediately into your electronic medical record. You may view this report before your referring provider. If you have questions, please contact your health care provider. INDICATION: Intractable epilepsy. TECHNIQUE: Brain MRI with and without contrast, seizure protocol. 20 cc of gadolinium base contrast administered. COMPARISON: Brain MRI from 04/09/2023. FINDINGS: Normal cerebral volume and morphology. The hippocampal formations are symmetric and normal in size, morphology and signal. No evidence of mesial temporal sclerosis. Cerebral cortex is normal with no polymicrogyria, cortical dysplasia or gonzalez matter heterotopia. No encephalocele. No acute infarct or hemorrhage. No mass or pathologic intracranial enhancement. Left posterior temporal benign developmental venous anomaly. Few small FLAIR hyperintense foci scattered within the supratentorial white matter, typical for chronic microvascular ischemic change. No mass effect or herniation. No hydrocephalus or extra-axial collections. The pituitary gland, parasellar structures and optic chiasm are normal. Posterior fossa is normal. All the major intracranial vascular structures demonstrate normal flow-related signal. The orbital contents are normal. No calvarial or skull base marrow signal abnormality. No obstructive sinus disease. No extracranial soft tissue findings. IMPRESSION: 1. No structural intracranial abnormalities to explain the patient`s seizure symptoms. 2. No acute ischemia. No mass or pathologic intracranial enhancement. 3. Stable mild chronic microvascular ischemic changes. Dictated by Bryant Carias MD @ 09/21/2024 10:51:48 AM (Electronically Signed)
== END 2024-09-19 14:16 | disposition home or self-care (01) ==
LOC: MRI 14:16
PROVIDERS: PCP Family Medicine; Visit Provider Psychiatry & Neurology Epilepsy
DX: G40.919 Epilepsy, unspecified, intractable, without status epilepticus (principal); I67.82 Cerebral ischemia
CPT/HCPCS: 70553; A9575

== ENCOUNTER 2024-10-03 13:28 | Outpatient (CLI) | payer MEDICAID, SELFPAY | END 2024-10-03 13:29 | disposition home or self-care (01) | PROVIDERS: PCP Family Medicine; Visit Provider Family Medicine | DX: E78.2 Mixed hyperlipidemia (principal); G40.509 Epileptic seizures related to external causes, not intractable, without status epilepticus; Z51.81 Encounter for therapeutic drug level monitoring; Z79.899 Other long term (current) drug therapy | CPT/HCPCS: 80048; 80164; 80165; 80175; 80235 ==

== ENCOUNTER 2024-11-08 12:33 | Outpatient (CLI) | payer MEDICAID, SELFPAY | END 2024-11-08 12:34 | disposition home or self-care (01) | PROVIDERS: PCP Family Medicine; Visit Provider Family Medicine | DX: E03.9 Hypothyroidism, unspecified (principal); G40.509 Epileptic seizures related to external causes, not intractable, without status epilepticus; Z51.81 Encounter for therapeutic drug level monitoring | CPT/HCPCS: 80175; 80235; 84439; 84443 ==

== ENCOUNTER 2024-12-11 14:54 | Outpatient (CLI) | payer MEDICARE, SELFPAY | END 2024-12-11 14:55 | disposition home or self-care (01) | PROVIDERS: PCP Family Medicine; Visit Provider Family Medicine | DX: E03.9 Hypothyroidism, unspecified (principal); E78.2 Mixed hyperlipidemia; Z13.0 Encounter for screening for diseases of the blood and blood-forming organs and certain disorders involving the immune mechanism | CPT/HCPCS: 80061; 84443; 84460; 85027 ==

== ENCOUNTER 2025-03-21 11:59 | Outpatient (CLI) | payer MEDICARE, SELFPAY | END 2025-03-21 12:00 | disposition home or self-care (01) | LOC: FBOREF 12:00 | PROVIDERS: PCP Family Medicine; Visit Provider Family Medicine | DX: E03.9 Hypothyroidism, unspecified (principal); E78.2 Mixed hyperlipidemia; E11.9 Type 2 diabetes mellitus without complications | CPT/HCPCS: 80048; 84439; 84443 ==

== ENCOUNTER 2025-07-24 11:16 | Outpatient (CLI) | payer MEDICARE, SELFPAY | END 2025-07-24 11:17 | disposition home or self-care (01) | PROVIDERS: PCP Family Medicine; Visit Provider Family Medicine | DX: E03.9 Hypothyroidism, unspecified (principal); E11.9 Type 2 diabetes mellitus without complications; G40.509 Epileptic seizures related to external causes, not intractable, without status epilepticus; Z79.899 Other long term (current) drug therapy | CPT/HCPCS: 80048; 80175; 80235; 84443 ==